=== PATIENT | female | born 1950 | race Caucasian/White ===

== ENCOUNTER → 2016-07-30 | Outpatient (CLI) | payer BC ==
[~2016-07-30] MED LIST: CHOL1000 PO; MULT-506 PO; OMEG10007 PO; OMEP40CA41 PO
--- NOTE | 2016-07-30 15:44 | DIAGNOSTIC IMAGING REPORT ---
CT OF THE RIGHT KNEE WITHOUT CONTRAST CT DOSE: 778.55 mGy.cm CLINICAL HISTORY: Lateral tibial plateau fracture. TECHNIQUE: Axial images of the right knee were obtained without IV contrast. Sagittal and coronal reconstructions were viewed. COMPARISON STUDY: Right knee radiographs performed earlier today. FINDINGS: There is a mildly displaced, mildly depressed fracture of the posterior aspect of the lateral tibial plateau. Fracture is depressed by approximately 4 mm. The fracture extends to the lateral tibial spine. No additional acute fractures are identified on this examination. This corresponds to the fracture shown on prior knee radiographs. There is a small to moderate joint effusion with small popliteal cyst. Mild arthritis of the right knee is noted. The ligaments of the right knee are suboptimally assessed by CT. The posterior cruciate ligament is grossly intact. The anterior cruciate ligament is not well visualized. Only a small portion of the anterior cruciate ligament is identified. IMPRESSION: 1. Acute mildly displaced, mildly depressed fracture of the posterior aspect of the lateral tibial plateau. 2. Small to moderate right knee joint effusion with small popliteal cyst. 3. Possible ACL tear, suboptimally assessed by CT. Electronically signed by: Fernando Davenport M.D. 07/30/2016 3:43 PM
== END | disposition home or self-care (01) ==
LOC: C.CTS 15:01
PROVIDERS: ATTEND Family Medicine
DX: S82.121A Displaced fracture of lateral condyle of right tibia, initial encounter for closed fracture (principal); X58.XXXA Exposure to other specified factors, initial encounter

== ENCOUNTER → 2016-07-30 | Outpatient (CLI) | payer BC ==
--- NOTE | 2016-07-30 09:56 | DIAGNOSTIC IMAGING REPORT ---
RIGHT KNEE 4 OR MORE VIEWS CLINICAL HISTORY: M25.561 Knee pain, right acute R knee pain Med and Lat joint sp f Right pain COMPARISON: None. DISCUSSION: Potential subtle cortical break lateral tibial plateau. Mild degenerative change of all remaining joint compartments. No significant joint effusion. Bony alignment is anatomic. There is no evidence for soft tissue swelling. IMPRESSION: Possible nondisplaced cortical fracture lateral tibial plateau versus overlap artifact. CT study of the knee is suggested as follow-up. Electronically signed by: Albin Ratliff M.D. 07/30/2016 9:54 AM
== END | disposition home or self-care (01) ==
LOC: C.RAD1850 09:37
PROVIDERS: ATTEND Family Medicine
DX: M25.561 Pain in right knee (principal)

== ENCOUNTER → 2016-12-03 | Outpatient (CLI) | payer BC ==
--- NOTE | 2016-12-03 12:49 | MAMMOGRAPHY REPORT ---
BILATERAL DIGITAL SCREENING MAMMOGRAM WITH CAD: 12/03/2016 CLINICAL HISTORY: Routine screening. Patient has no complaints. TECHNIQUE: Bilateral CC and MLO views were obtained. Current study was also evaluated with a Comput er Aided Detection (CAD) system. COMPARISON: Comparison is made to exams dated: 11/06/2015 mammogram, 11/11/2014 ultrasound, 11/11/2014 mammogram, 10/31/2014 mammogram, 08/16/2013 mammogram, and 08/10/2012 mammogram - [facility]. BREAST COMPOSITION: There are scattered areas of fibroglandular density in both breasts. FINDINGS: There is a stable circumscribed 6 mm round mass in the lower inner quadrant of the right b reast. Scattered benign rim calcifications. No suspicious mass, architectural distortion or cluste r of suspicious microcalcifications is seen. IMPRESSION: ACR BI-RADS CATEGORY 1: NEGATIVE There is no mammographic evidence of malignancy. A 1 year screening mammogram is recommended. The p atient will receive written notification of the results. Approximately 10% of breast cancers are not detected with mammography. A negative mammographic repor t should not delay biopsy if a clinically suggestive mass is present. Soraya Frank M.D. ay/:12/03/2016 08:58:46 [employer] Automatic Sawyer: Kelli BILLINGSLEY(R)(M), [facility] letter sent: Normal 1/2 BI-RADS Code: ACR BI-RADS Category 1: Negative
== END | disposition home or self-care (01) ==
LOC: C.MAMM 08:19
PROVIDERS: ATTEND Internal Medicine
DX: Z12.31 Encounter for screening mammogram for malignant neoplasm of breast (principal)

== ENCOUNTER → 2016-12-30 | Outpatient (CLI) | payer BC ==
[2016-12-30 14:08] LABS: ALT/SGPT 46 U/L (12-78); AST/SGOT 48 U/L (15-37); BLOOD UREA NITROGEN 14 mg/dl (7-18); BUN/CREATININE RATIO 20.9 (10-20); CALCIUM 9.6 mg/dl (8.5-10.1); CARBON DIOXIDE 31 mmol/L (21-32); CHLORIDE 105 mmol/L (98-107); CREATININE 0.69 mg/dl (0.60-1.20); GLUCOSE 83 mg/dl (70-99); SODIUM 141 mmol/L (136-145)
[2016-12-30 14:11] LABS: CHOLESTEROL 223 mg/dl (0-200); CHOLESTEROL/HDL RATIO 4.6; HDL CHOLESTEROL 48 mg/dl; LDL CHOLESTEROL CALCULATED 148 mg/dl; TRIGLYCERIDES 135 mg/dl (0-150); VERY LOW DENSITY LIPOPROT CALC 27 mg/dl
--- NOTE | 2017-01-03 10:24 | CODING QUERY MEDICAL NECESSITY ---
SUPPORTING DIAGNOSIS NEEDED Dr. Castro, A supporting diagnosis is required for the test/procedure performed on this patient in order for us to be reimbursed by the patient's insurance. Please provide a supporting diagnosis for the following test/procedure listed below next to the test name along with your signature. *If there is no additional diagnosis for this patient that would support the following test/procedure please document that below next to the test/procedure. Test(s)/Procedure(s) that require a supporting diagnosis: * ([id number]) VITAMIN D ASSAY DIAGNOSIS: DATE OF SERVICE: 12/30/16 Provider Signature: Date: Thank you Charly Gallo [facility] Information Management Once completed, please kindly fax back to [phone] For questions please call [phone]
== END | disposition home or self-care (01) ==
LOC: C.LABBC 09:42
PROVIDERS: ATTEND Internal Medicine
DX: E78.5 Hyperlipidemia, unspecified (principal); R74.0 Nonspecific elevation of levels of transaminase and lactic acid dehydrogenase [LDH]; S82.209A Unspecified fracture of shaft of unspecified tibia, initial encounter for closed fracture; X58.XXXA Exposure to other specified factors, initial encounter; R74.8 Abnormal levels of other serum enzymes; E55.9 Vitamin D deficiency, unspecified

== ENCOUNTER → 2017-01-06 | Outpatient (CLI) | payer BC ==
[2017-01-06 11:41] LABS: ALKALINE PHOSPHATASE 73 U/L (45-117); ALT/SGPT 47 U/L (12-78); AST/SGOT 55 U/L (15-37)
== END | disposition home or self-care (01) ==
LOC: C.LABBC 08:21
PROVIDERS: ATTEND Internal Medicine
DX: R74.0 Nonspecific elevation of levels of transaminase and lactic acid dehydrogenase [LDH] (principal); R74.8 Abnormal levels of other serum enzymes

== ENCOUNTER → 2017-01-13 | Outpatient (CLI) | payer BC ==
--- NOTE | 2017-01-13 08:22 | DIAGNOSTIC IMAGING REPORT ---
ABDOMINAL ULTRASOUND, RIGHT UPPER QUADRANT HISTORY: Pain. Nausea. K82.4 Gallbladder polypmond but not january [id number]. COMPARISON: 01/01/2016 FINDINGS: Pancreas: The pancreas demonstrates a normal echotexture. Liver: Unremarkable. Gallbladder: Several small gallbladder polyps. No major change in the prior study. CBD: 5 mm Right kidney: No hydronephrosis. IMPRESSION: Several small gallbladder polyps. No change from the prior study. Electronically signed by: Albin Ratliff M.D. 01/13/2017 8:21 AM Dictated Date/Time: 01/13/2017 8:19 AM
== END | disposition home or self-care (01) ==
LOC: C.ULTRBC 07:56
PROVIDERS: ATTEND Internal Medicine
DX: K82.4 Cholesterolosis of gallbladder (principal)

== ENCOUNTER → 2017-03-10 | Day surgery (SDC) | payer BC ==
[2016-07-15 10:11] VITALS: BMI 21.0
[2017-02-25 15:15] VITALS: BMI 21.0
[~2017-03-10] VITALS: Ht 157.5 cm; Wt 52.3 kg
[~2017-03-10] MED LIST changes: +LIDOCAINE HCL 2% 2 ML VIAL (20MG/ML) ONE; +PROPOFOL IV EMULSION 10 MG/ML 20 ML VIAL IV ONE; +SODIUM CHLORIDE 0.9% 500ML 500 ML IV ONE
[2017-03-10 13:13] VITALS: Ht 157.5 cm; Wt 52.3 kg
--- NOTE | 2017-03-10 14:18 | Endo History and Physical ---
History & Physical Date of Service: Mar 10, 2017. Chief Complaint: SCREEENING FOR COLON CANCER Referring Physician: DR HAGAN History of Present Illness 66 yo CF who presents for screening colonoscopy. Past Surgical History Hx Cardiac Surgery: No Hx Internal Defibrillator: No Hx Pacemaker: No Hx Abdominal Surgery: Yes (APPY) Hx of Implantable Prosthesis: No Hx Post-Op Nausea and Vomiting: No Hx Cancer Surgery: No Hx Thoracic Surgery: No Hx Orthopedic: Yes (LT/RT KNEE MENISCUS REPAIR) Hx Urinary Tract Surgery: No Family History None Social History Smoking Status: Never Smoker Hx Substance Use: No Hx Alcohol Use: No Allergies Coded Allergies: Penicillins (Verified Allergy, Unknown, UNKNOWN - HAPPENED CHILD, ) Current Medications Reported Home Medications Medications Dose Route/Sig Max Daily Dose Days Date Category Vitamin D3 (Cholecalciferol) 1,000 Unit Tab 1 Tab PO QPM 02/25/17 Reported [place]-3 (Fish Oil) 1 Ea Cap 1 Cap PO QPM 07/15/16 Reported Prilosec (Omeprazole) 40 Mg Cap 40 Mg PO DAILY PRN 07/15/16 Reported Multivitamin (Multivitamins) Tab 1 Tab PO QPM 07/15/16 Reported Vital Signs Weight (Kilograms): 52.27 Height (Feet): 5 Height (Inches): 2 Date Time Temp Pulse Resp B/P (MAP) Pulse Ox O2 Delivery O2 Flow Rate FiO2 03/10/17 13:18 36.5 85 20 122/55 (77) 100 Room Air Physical Exam General Appearance: WD/WN, no apparent distress Respiratory/Chest: Auscultation: breath sounds normal Cardiovascular: Heart Auscultation: RRR Abdomen: Bowel Sounds: normal Inspection & Palpation: soft, non-distended, no tenderness, guarding & rebound Assessment and Plan Assessment: 66 yo CF who presents for screening colonoscopy. Plan: Proceed with colonoscopy.
--- NOTE | 2017-03-10 15:08 | Discharge Instructions ---
Endoscopy Patient Instructions Date / Procedure(s) Performed Mar 10, 2017. Colonoscopy Allergy Information Coded Allergies: Penicillins (Verified Allergy, Unknown, UNKNOWN - HAPPENED CHILD, ) Discharge Date / Findings Mar 10, 2017. Colon polyps Diverticulosis Internal hemorrhoids Medication Instructions Stopped Medication(s): OMEGA 3 LAST DOSE 03/03/17 MULTIVITAMIN AST DOSE 03/04/17 OK to resume all medications today as prescribed Reported Home Medications Medications Dose Route/Sig Max Daily Dose Days Date Category Vitamin D3 (Cholecalciferol) 1,000 Unit Tab 1 Tab PO QPM 02/25/17 Reported [place]-3 (Fish Oil) 1 Ea Cap 1 Cap PO QPM 07/15/16 Reported Prilosec (Omeprazole) 40 Mg Cap 40 Mg PO DAILY PRN 07/15/16 Reported Multivitamin (Multivitamins) Tab 1 Tab PO QPM 07/15/16 Reported Provider Instructions Activity Restrictions - No exercising or heavy lifting for 24 hours. - Do not drink alcohol the day of the procedure. - Do not drive a car or operate machinery until the day after the procedure. - Do not make any important decisions or sign important papers in 24 hours after the procedure. Following Day: - Return to full activity which may include returning to work/school. Diet Start your diet with liquids and light foods (jello, soup, juice, toast). Then eat your usual diet if not nauseated. Treatment For Common After Affects For mild abdominal pain, bloating, or excessive gas: - Rest - Eat lightly - Lie on right side Follow-Up Information Follow-up with DR HAGAN as scheduled Anesthesia Information What You Should Know You have had a procedure that required some medicine to reduce anxiety and discomfort. This treatment is called moderate sedation. After receiving the treatment, you may be sleepy, but you will be able to breathe on your own. The effects of the treatment may last for several hours. Follow these instructions along with Activity/Diet recommendations noted above: * Do NOT do anything where dizziness or clumsiness would be dangerous. * Rest quietly at home today, then you can be up and about tomorrow. * Have a responsible person stay with you the rest of today. * You may have had an I.V. today. If so, you may take the dressing off later today. Recommendations Call your doctor if: * Trouble breathing * Continuous vomiting for more than 24 hours * Temperature above 101 degrees * Severe abdominal pain or bloating * Pain not relieved by pain medicine ordered * There is increased drainage or redness from any incision * A large amount of rectal bleeding greater than 2-3 tablespoons. (If you had a polyp/s removed or have hemorrhoids, a small amount of blood - from the rectum is to be expected.) * You have any unanswered questions or concerns. IN THE EVENT OF A SERIOUS EMERGENCY, GO TO THE NEAREST EMERGENCY ROOM Your discharge instructions were prepared by provider Ricardo Laws. Patient Instructions Signature Page Jesi Leong Patient (or Guardian) Signature/Date: I have read and understand the instructions given to me by my caregivers. Caregiver/RN/Doctor Signature/Date: The above-named patient and/or guardian has received patient instructions on this date. + Original Patient Signature Page (only) stays with chart. Please make copy for patient.
[2017-03-10 15:15] VITALS: PULSE 54
--- NOTE | 2017-03-10 15:17 | GI REPORT ---
Procedure Date: 03/10/2017 2:34 PM Procedure: Colonoscopy Indications: Screening for colorectal malignant neoplasm Medicines: Monitored Anesthesia Care Complications: No immediate complications. Estimated Blood Loss: Estimated blood loss: none. Procedure: Pre-Anesthesia Assessment: - Prior to the procedure, a History and Physical was performed, and patient medications and allergies were reviewed. The patient's tolerance of previous anesthesia was also reviewed. The risks and benefits of the procedure and the sedation options and risks were discussed with the patient. All questions were answered, and informed consent was obtained. Prior Anticoagulants: The patient has taken no previous anticoagulant or antiplatelet agents. ASA Grade Assessment: II - A patient with mild systemic disease. After reviewing the risks and benefits, the patient was deemed in satisfactory condition to undergo the procedure. After I obtained informed consent, the scope was passed under direct vision. Throughout the procedure, the patient's blood pressure, pulse, and oxygen saturations were monitored continuously. The Scope was introduced through the anus and advanced to the terminal ileum. The colonoscopy was performed without difficulty. The patient tolerated the procedure well. The quality of the bowel preparation was good. The terminal ileum, ileocecal valve, appendiceal orifice, and rectum were photographed. Findings: Three sessile polyps were found in the rectum, in the sigmoid colon and in the cecum. The polyps were 5 to 6 mm in size. These polyps were removed with a hot snare. Resection and retrieval were complete. Multiple small-mouthed diverticula were found in the sigmoid colon. Non-bleeding internal hemorrhoids were found during retroflexion. The hemorrhoids were small. Impression: - Three 5 to 6 mm polyps in the rectum, in the sigmoid colon and in the cecum, removed with a hot snare. Resected and retrieved. - Diverticulosis in the sigmoid colon. - Non-bleeding internal hemorrhoids. Recommendation: - Resume previous diet. - Continue present medications. - Repeat colonoscopy for surveillance based on pathology results. - Return to primary care physician as previously scheduled. Ricardo Laws DO 03/10/2017 3:17:42 PM This report has been signed electronically. Note Initiated On: 03/10/2017 2:34 PM I attest to the content of the Intraoperative Record and orders documented therein, exceptions below
--- NOTE | 2017-03-10 15:25 | Anesthesiology Progress Note ---
Anesthesia Post Op Note Date & Time Mar 10, 2017 at 15:25 Vital Signs Pain Intensity: 0 Vital Signs Past 12 Hours Date Time Temp Pulse Resp B/P (MAP) Pulse Ox O2 Delivery O2 Flow Rate FiO2 03/10/17 15:15 54 18 127/46 (73) 100 Room Air 03/10/17 15:00 55 12 124/85 (98) 100 Room Air 03/10/17 13:18 36.5 85 20 122/55 (77) 100 Room Air Notes Mental Status: alert / awake / arousable, participated in evaluation Pt Amnestic to Procedure: Yes Nausea / Vomiting: adequately controlled Pain: adequately controlled Airway Patency, RR, SpO2: stable & adequate BP & HR: stable & adequate Hydration State: stable & adequate Anesthetic Complications: no major complications apparent
[2017-03-10 15:30] VITALS: BP 118/59; O2SAT 97
== END | disposition home or self-care (01) ==
LOC: C.GI 12:54
PROVIDERS: ATTEND Internal Medicine
DX: Z12.11 Encounter for screening for malignant neoplasm of colon (principal); D12.6 Benign neoplasm of colon, unspecified; D12.8 Benign neoplasm of rectum; K64.8 Other hemorrhoids; K57.90 Diverticulosis of intestine, part unspecified, without perforation or abscess without bleeding

== ENCOUNTER → 2017-04-24 | Outpatient (CLI) | payer BC ==
[~2017-04-24] MED LIST changes: -LIDOCAINE HCL 2% 2 ML VIAL (20MG/ML) ONE; -PROPOFOL IV EMULSION 10 MG/ML 20 ML VIAL IV ONE; -SODIUM CHLORIDE 0.9% 500ML 500 ML IV ONE
[2017-05-06 14:37] LABS: O&P SOURCE OTHER-STOOL
== END | disposition home or self-care (01) ==
LOC: C.LABSPEC 09:45
PROVIDERS: ATTEND Physician Assistant
DX: R19.4 Change in bowel habit (principal); R74.0 Nonspecific elevation of levels of transaminase and lactic acid dehydrogenase [LDH]

== ENCOUNTER → 2017-08-11 | Outpatient (CLI) | payer BC | END | disposition home or self-care (01) | LOC: C.PAPS 10:58 | PROVIDERS: ATTEND Obstetrics & Gynecology | DX: Z01.419 Encounter for gynecological examination (general) (routine) without abnormal findings (principal); Z78.0 Asymptomatic menopausal state ==

== ENCOUNTER → 2017-12-08 | Outpatient (CLI) | payer BC ==
[2017-12-08 11:07] LABS: ALT/SGPT 45 U/L (12-78); AST/SGOT 46 U/L (15-37); BLOOD UREA NITROGEN 14 mg/dl (7-18); CALCIUM 8.8 mg/dl (8.5-10.1); CARBON DIOXIDE 28 mmol/L (21-32); CHOLESTEROL 218 mg/dl (0-200); CREATININE 0.69 mg/dl (0.60-1.20); GLUCOSE 90 mg/dl (70-99); SODIUM 140 mmol/L (136-145)
[2017-12-08 11:10] LABS: ALKALINE PHOSPHATASE 75 U/L (45-117); LDL CHOLESTEROL CALCULATED 149 mg/dl; TOTAL PROTEIN 7.8 gm/dl (6.4-8.2)
== END | disposition home or self-care (01) ==
LOC: C.LABBC 08:58
PROVIDERS: ATTEND Internal Medicine
DX: E78.5 Hyperlipidemia, unspecified (principal); R74.0 Nonspecific elevation of levels of transaminase and lactic acid dehydrogenase [LDH]; E55.9 Vitamin D deficiency, unspecified; R74.8 Abnormal levels of other serum enzymes

== ENCOUNTER → 2017-12-08 | Outpatient (CLI) | payer BC ==
--- NOTE | 2017-12-08 15:25 | MAMMOGRAPHY REPORT ---
BILATERAL DIGITAL SCREENING MAMMOGRAM TOMOSYNTHESIS WITH CAD: 12/08/2017 CLINICAL HISTORY: Routine screening. Patient has no complaints. TECHNIQUE: Breast tomosynthesis in addition to standard 2D mammography was performed. Current study was also evaluated with a Computer Aided Detection (CAD) system. COMPARISON: Comparison is made to exams dated: 12/03/2016 mammogram, 11/06/2015 mammogram, 11/11/2014 ul trasound, 11/11/2014 mammogram, 08/16/2013 mammogram, and 08/10/2012 mammogram - [facility]. BREAST COMPOSITION: There are scattered areas of fibroglandular density in both breasts. FINDINGS: There is a stable 6 mm round circumscribed mass in the lower inner right breast, that appea rs stable in size and mammographic appearance dating back to at least 2008, therefore likely benign. There are scattered benign rim calcifications bilaterally. No new suspicious mass, architectural dis tortion or cluster of microcalcifications is seen. IMPRESSION: ACR BI-RADS CATEGORY 1: NEGATIVE There is no mammographic evidence of malignancy. A 1 year screening mammogram is recommended. The pa tient will receive written notification of the results. Approximately 10% of breast cancers are not detected with mammography. A negative mammographic report should not delay biopsy if a clinically suggestive mass is present. Soraya Frank M.D. ay/:12/08/2017 11:59:49 [employer] Emission Automobile Designer: Kelli FIERRO)(Boris), [facility] letter sent: Normal 1/2 BI-RADS Code: ACR BI-RADS Category 1: Negative
== END | disposition home or self-care (01) ==
LOC: C.MAMM 08:16
PROVIDERS: ATTEND Internal Medicine
DX: Z12.31 Encounter for screening mammogram for malignant neoplasm of breast (principal)

== ENCOUNTER 2024-08-19 12:46 | Inpatient (IN) ==
[2024-08-19 13:25] LABS: Hematocrit (blood only) 36.5 % (37.0-47.0); Hemoglobin 12.3 g/dl (12.0-16.0); Mean Corpuscular Hemoglobin 27.9 pg (25.0-34.0); Mean Corpuscular Hgb Conc 33.7 g/dL (32.0-36.0); Mean Corpuscular Volume 82.8 fL (80.0-100.0); Platelet Count 332 K/uL (130-400); RDW Standard Deviation 42.1 fL (36.4-46.3); Red Blood Count 4.41 M/uL (4.20-5.40); White Blood Count 18.74 K/ul (4.8-10.8)
[2024-08-19 13:46] LABS: Albumin Globulin Ratio 1.3 (0.9-2); Albumin Level 4.3 gm/dl (3.4-5.0); BUN Creatinine Ratio 17.6 (10-20); Bilirubin,Total 0.4 mg/dl (0.2-1.0); Calcium 9.3 mg/dl (8.6-10.3); Creatinine Clr Calc Pharmacy 70.5 ml/min; Globulin 3.4 gm/dl (2.5-4.0); Potassium 3.7 mmol/L (3.5-5.1); Total Protein 7.7 gm/dl (6.0-8.3)
[2024-08-19 13:47] LABS: Partial Thromboplastin Ratio 1.1; Partial Thromboplastin Time 29 Seconds (21-31); Prothrombin Time 10.5 Seconds (9.0-12.0)
[2024-08-19 13:50] LABS: Troponin I High Sensitivity 12.5 pg/ml (0-14)
--- NOTE | 2024-08-19 13:54 | Electrocardiogram Report ---
Test Reason : Blood Pressure : */* mmHG Vent. Rate : 84 BPM Atrial Rate : 84 BPM P-R Int : 162 ms QRS Dur : 116 ms QT Int : 372 ms P-R-T Axes : 83 -22 92 degrees QTcB Int : 439 ms Sinus rhythm with occasional Premature ventricular complexes Minimal voltage criteria for LVH, may be normal variant Nonspecific ST and T wave abnormality Abnormal ECG Confirmed by Brennon Stephens ([id number]) on 08/19/2024 1:54:05 PM Referred By: Confirmed By: Brennon Stephens
[2024-08-19 13:55] LABS: Influenza A virus by PCR Negative (Neg); Influenza B virus by PCR Negative (Neg); RSV by PCR Negative (Neg); SARS CoV2 RNA(COVID-19) Ceph NEGATIVE (Negative)
[2024-08-19 13:59] LABS: Basophils # (auto) 0.07 K/uL (0.00-0.20); Basophils % (auto) 0.4 %; Eosinophils # (auto) 0.08 K/uL (0.00-0.50); Eosinophils % (auto) 0.4 %; Immature Granulocytes % (auto) 0.5 %; Lymphocytes # (auto) 2.97 K/uL (1.20-3.40); Lymphocytes % (auto) 15.8 %; Monocytes # (auto) 0.68 K/uL (0.11-0.59); Monocytes % (auto) 3.6 %; Neutrophils # (auto) 14.84 K/uL (1.40-6.50); Neutrophils % (auto) 79.3 %
--- NOTE | 2024-08-19 14:12 | XRay Report ---
XR chest 1V not portable CLINICAL HISTORY: Chest pain, nonspecific COMPARISON STUDY: 05/10/2024 FINDINGS: Heart size and pulmonary vasculature are normal. Stable hyperexpanded lungs. No consolidati on, pleural effusion, or pneumothorax. Stable mild scarring in the apices. IMPRESSION: No acute findings. ACT 112: Negative or not required by law. Electronically signed by: Jose Daniel Fraire M.D. 08/19/2024 2:11 PM
[2024-08-19] MEDS: OPTIRAY 320 125ml IV ONE (14:48)
--- NOTE | 2024-08-19 15:00 | Emergency Department Note ---
Impression & Plan MCKINNEY (dyspnea on exertion), Leukocytosis, Pneumonia, Failure of outpatient treatment ED Provider Note NAME: SHERIN HOLLAND AGE: 73 SEX: F : 1950 ARRIVES VIA: Walk-In INFORMANT: [Patient] ED PROVIDER(S): [Alonzo Medina MD] CHIEF COMPLAINT: Shortness of breath HISTORY OF PRESENT ILLNESS: The patient is a 73-year-old female who presents to the ER with shortness of breath that has been present for months but worse in the last week. The patient was diagnosed with bronchiectasis and possibly pneumonia and she was placed on Levaquin. The patient finished this medication. The patient does not think that the antibiotics really helped her symptoms. In fact, she now feels even more short of breath. She felt short of breath trying to take out the garbage. The patient states that there has not been any fever, she has had a slight cough but nothing excessive. Occasionally, she hears herself wheeze. The patient does not have chest pain. She does feel her dyspnea is quite a bit worse when she tries to exert herself. She does see pulmonology and, was referred today to the ER as things seemed to be worsening. No history of previous PE or DVT. Of note, the patient has an outpatient bronchial washing from earlier this month showing Pseudomonas and Pasteurella. PMHx/PSHx/Social Hx: See Below PHYSICAL EXAM: GENERAL: Patient is in no acute distress. HEENT: No acute trauma, normocephalic atraumatic, mucous membranes moist, no nasal congestion. NECK: No stridor, no adenopathy, no meningismus, trachea is midline. LUNGS: Clear to auscultation bilaterally, no wheeze, no rhonchi, breath sounds equal. Breath sounds diminished bilaterally. HEART: Without murmurs gallops or rubs, regular rate and rhythm. ABDOMEN: Soft, nontender, no peritonitis. EXTREMITIES: No cyanosis, full range of motion of all the joints without pain or difficulty. NEUROLOGIC: Oriented x 3, no acute motor or sensory deficits, no focal weakness. SKIN: No jaundice, no diaphoresis. DIFFERENTIAL DIAGNOSIS: Bronchitis or pneumonia, bronchiectasis, failed outpatient management, PE, anemia, cardiac ischemia, among others. EMERGENCY DEPARTMENT PROCEDURES: MEDICAL DECISION MAKING: There is a moderate leukocytosis, this would be consistent with infection. There was a normal hemoglobin and platelet count. No coagulopathy. No renal failure or significant electrolyte abnormality. Lactic acid level is not elevated making sepsis less likely. No concerning liver enzyme elevation. ECG showed a sinus rhythm, no obvious acute ischemia. Cardiac enzyme testing x 1 was not consistent with acute cardiac injury. Nasal swab did not show influenza, RSV or COVID-19. Chest x-ray did not show pneumonia or CHF. Chest CT did not show PE, pneumonia was seen--similar to the CT from earlier this month. Patient presents with worsening dyspnea despite outpatient Levaquin. Her CT imaging demonstrates pneumonia, the pneumonia has not cleared with the Levaquin. Given the failed outpatient management, given the leukocytosis and her dyspnea on exertion, hospitalization is indicated. I did speak with pulmonology, they recommended IV antibiotic therapy, admission. I spoke with the patient and case management, the on-call hospitalist was consulted. Patient was given IV cefepime to start her antibiotic therapy. Prior/Outside records/notes reviewed: None ECG per my interpretation: Indication was shortness of breath. The ECG shows a sinus rhythm with some PVCs. The rate is 84. LVH is present. There is no obvious acute ST elevation, there is some nonspecific ST change. QTc was 439. Continuous Cardiac Monitoring per my interpretation: An order was placed for continuous cardiac monitoring. The monitor shows a rate of 99 with normal sinus rhythm. Imaging/x-ray results per my interpretation: Chest x-ray does not show CHF, pneumonia or pneumothorax. Chronic Medical/Social conditions affecting care: Advanced age. Care/Management discussed with: Pulmonary medicine-Dr. Randall. Case management and the on-call hospitalist. Level of care consideration(s): After review of the information above and other included data: --I feel the patient can be managed safely as an outpatient DISPOSITION: Discharged Past Med/Surg History Problem List Failure of outpatient treatment (Acute) Pneumonia (Acute) Leukocytosis (Acute) MCKINNEY (dyspnea on exertion) (Acute) Bronchiectasis Hyponatremia Leukocytosis Pseudomonas pneumonia Abnormal CT scan of lung Barrera esophagus Current use of proton pump inhibitor Screening for colon cancer Anemia, mild Left shoulder pain PMR (polymyalgia rheumatica) Hip pain Neck pain Mallet finger of right hand Gallbladder polyp (Acute) Elevated creatine kinase level Vitamin D deficiency (Acute) Raynauds phenomenon (Acute) Hyperlipidemia (Acute) Esophageal reflux (Acute) Diverticulosis (Acute) Medical History Barretts esophagus "mild" Internal hemorrhoids Surgical History History of esophagogastroduodenoscopy (EGD) Cranberry teeth removed History of cataract surgery left Hx of detached retina repair rt/left Hx of ovarian cystectomy Hx of arthroscopy of knee left/right Hx of hernia repair 1996 Hx of colonoscopy Hx of appendectomy Family History Brother Alcoholism Inflammatory bowel diseases (IBD) Sister Asthma Grandmother (Maternal) Breast cancer Father Coronary heart disease Mother Heart disease Myocardial infarction @ 46 Other No family history of adverse response to anesthesia Denies family history of Ovarian cancer Prostate cancer Crohn's disease Colorectal cancer Social History Smoking Status: Former smoker Second Hand Exposure: Yes (in the past); Do You Dip or Chew Tobacco: No; Hx Alcohol Use: No Hx Substance Use: No Preferred Language: Congolese Visual Impairment: No Limitations Hearing Ability: Normal Chemical Dependency Counselor Required: No Beliefs That Will Affect Care: None marital status: Current Living Situation: Alone Current Living Situation Comment: papo current occupational status: employed 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 Feels Safe at Home: Yes Childhood Exposure to Second-Hand Smoke: Yes Dental Care, Regularly: Yes Physical Activity Frequency: Daily Seatbelt Use: always Sunscreen Use: Yes Assistive Devices: Glasses Allergies Allergies Allergy/AdvReac Type Severity Reaction Status Date / Time Penicillins Allergy Unknown unsure>chil Verified 07/23/24 12:18 dhood Home Meds Home Medications Medication Instructions Recorded Confirmed multivitamin (Daily Multi-Vitamin 1 tab PO DAILY 03/15/19 08/19/24 tablet) cholecalciferol (vitamin D3) 50 2,000 units PO DAILY 04/16/19 08/19/24 mcg (2,000 unit) capsule Previous Rx's Medication Instructions Recorded ezetimibe 10 mg tablet (Zetia) 10 mg PO DAILY #30 tabs 04/08/24 albuterol sulfate 90 mcg/actuation 2 puff inhalation QID PRN 05/24/24 aerosol inhaler shortness of breath or wheezing #8.5 grams benzonatate 200 mg capsule 200 mg PO TID PRN cough #30 caps 05/24/24 omeprazole 40 mg capsule,delayed 40 mg PO QAM #90 caps 06/07/24 release guaifenesin 1,200 mg tablet, 1,200 mg PO BID #60 tabs 07/27/24 extended release 12 hr (Mucinex) sodium chloride 3 % for 4 ml inhalation Q8H PRN secretions 07/27/24 nebulization #120 mL umeclidinium 62.5 mcg-vilanterol 1 inh inhalation DAILY #60 ea 08/16/24 25 mcg/actuation powdr for inhalation (Anoro Ellipta) Results & Data (ED) Vital Signs Vital Signs - 24 hr 08/19/24 12:50 08/19/24 15:49 08/19/24 16:00 Temperature 36.5 C Temperature Source Temporal Artery Scan Pulse Rate 99 H Pulse Rate from SpO2 Sensor Respiratory Rate 18 Respiratory Effort / Characteristics Non-Labored Spontaneous Respiratory Depth Normal Blood Pressure 160/86 H Blood Pressure Mean 110 Blood Pressure Position Sitting Pulse Oximetry 93 93 Oxygen Delivery Method Room Air Room Air Room Air Oxygen Flow Rate 0 Sepsis Recent Fever Within 48 Hours No Sepsis New/Unexplained Change in Mental Status No Sepsis Action Taken by Nursing No Action Required 08/19/24 16:00 08/19/24 17:00 08/19/24 17:30 Temperature Temperature Source Pulse Rate 73 70 Pulse Rate from SpO2 Sensor 67 Respiratory Rate 20 17 Respiratory Effort / Characteristics Respiratory Depth Blood Pressure 127/60 136/75 Blood Pressure Mean 95 95 Blood Pressure Position Pulse Oximetry 99 93 96 Oxygen Delivery Method Room Air Room Air Room Air Oxygen Flow Rate Sepsis Recent Fever Within 48 Hours Sepsis New/Unexplained Change in Mental Status Sepsis Action Taken by Nursing 08/19/24 18:00 08/19/24 18:30 08/19/24 19:00 Temperature Temperature Source Pulse Rate 57 L 78 70 Pulse Rate from SpO2 Sensor Respiratory Rate 20 18 22 Respiratory Effort / Characteristics Respiratory Depth Blood Pressure 106/34 L 144/64 H 165/59 H Blood Pressure Mean 70 73 98 Blood Pressure Position Pulse Oximetry 93 95 98 Oxygen Delivery Method Room Air Room Air Room Air Oxygen Flow Rate Sepsis Recent Fever Within 48 Hours Sepsis New/Unexplained Change in Mental Status Sepsis Action Taken by Nursing 08/19/24 19:30 08/19/24 20:00 08/19/24 20:07 Temperature Temperature Source Pulse Rate 65 68 Pulse Rate from SpO2 Sensor Respiratory Rate 16 24 Respiratory Effort / Characteristics Respiratory Depth Blood Pressure 142/55 H 150/63 H Blood Pressure Mean 68 71 Blood Pressure Position Pulse Oximetry 99 96 Oxygen Delivery Method Room Air Room Air Room Air Oxygen Flow Rate Sepsis Recent Fever Within 48 Hours Sepsis New/Unexplained Change in Mental Status Sepsis Action Taken by Alf Medications Current Medication List: was personally reviewed by me Laboratory Data Attestation: I reviewed the patient's lab results. 08/19/24 13:06 08/19/24 13:06 Lab Results 08/19/24 08/19/24 08/19/24 Range/Units 13:01 13:06 16:51 WBC 18.74 H (4.8-10.8) K/ul RBC 4.41 (4.20-5.40) M/uL Hgb 12.3 (12.0-16.0) g/dl Hct 36.5 L (37.0-47.0) % MCV 82.8 (80.0-100.0) fL MCH 27.9 (25.0-34.0) pg MCHC 33.7 (32.0-36.0) g/dL RDW Std Deviation 42.1 (36.4-46.3) fL RDW Coeff of Paco 14.0 (11.5-14.5) % Plt Count 332 (130-400) K/uL MPV 10.0 (9.4-12.4) fL Immature Gran % (Auto) 0.5 % Neut % (Auto) 79.3 % Lymph % (Auto) 15.8 % [place] % (Auto) 3.6 % Eos % (Auto) 0.4 % Baso % (Auto) 0.4 % Neut # (Auto) 14.84 H (1.40-6.50) K/uL Lymph # (Auto) 2.97 (1.20-3.40) K/uL [place] # (Auto) 0.68 H (0.11-0.59) K/uL Eos # (Auto) 0.08 (0.00-0.50) K/uL Baso # (Auto) 0.07 (0.00-0.20) K/uL Immature Gran # (Auto) 0.10 (0.01-0.20) K/uL PT 10.5 (9.0-12.0) Seconds INR 1.0 (0.9-1.1) APTT 29 (21-31) Seconds PTT Ratio 1.1 Sodium 133 L (136-145) mmol/L Potassium 3.7 (3.5-5.1) mmol/L Chloride 101 (98-107) mmol/L Carbon Dioxide 21 (21-32) mmol/L Anion Gap 11 (3-11) BUN 9 (6-23) mg/dl Creatinine 0.51 L (0.6-1.2) mg/dl Est Cr Clr Drug Dosing 70.5 ml/min eGFR 99.12 BUN/Creatinine Ratio 17.6 (10-20) Glucose 106 H (70-99(Fasting)) mg/dl Lactate 0.7 (0.4-2.0) mmol/L Calcium 9.3 (8.6-10.3) mg/dl Total Bilirubin 0.4 (0.2-1.0) mg/dl AST 23 (13-39) U/L ALT 14 (7-52) U/L Alkaline Phosphatase 97 (34-104) U/L Troponin I High Sens 12.5 (0-14) pg/ml C-Reactive Protein 3.21 H (0-0.5) mg/dl Total Protein 7.7 (6.0-8.3) gm/dl Albumin 4.3 (3.4-5.0) gm/dl Globulin 3.4 (2.5-4.0) gm/dl Albumin/Globulin Ratio 1.3 (0.9-2) Procalcitonin < 0.02 (0-0.5) ng/ml SARS-CoV-2 (PCR) NEGATIVE (Negative) Influenza Type A (PCR) Negative (Neg) Influenza Type B (PCR) Negative (Neg) RSV (RT-PCR) Negative (Neg) Administered Medications Discontinued Medications Acetaminophen (Acetaminophen 325 Mg Tab) 650 mg PO NOW STA Stop: 08/19/24 18:03 Last Admin: 08/19/24 18:25 Dose: 650 mg Documented By: FIORELLA Cefepime HCl (Maxipime 2000mg) 2,000 mg in 20 mls @ 5 mls/min IV NOW STA; Protocol Stop: 08/19/24 15:45 Last Admin: 08/19/24 17:30 Dose: 5 mls/min Documented By: LUI Ioversol (Optiray 320 125ml) 120 ml IV ONCE ONE Stop: 08/19/24 14:49 Last Admin: 08/19/24 14:48 Dose: 120 ml Documented By: YADIEL Imaging Data Radiologist's Impression: Chest X-Ray 08/19/24 12:55 XR chest 1V not portable CLINICAL HISTORY: Chest pain, nonspecific COMPARISON STUDY: 05/10/2024 FINDINGS: Heart size and pulmonary vasculature are normal. Stable hyperexpanded lungs. No consolidation, pleural effusion, or pneumothorax. Stable mild scarring in the apices. IMPRESSION: No acute findings. ACT 112: Negative or not required by law. Electronically signed by: Jose Daniel Fraire M.D. 08/19/2024 2:11 PM Chest CTA 08/19/24 14:29 CT angio chest PE protocol CT DOSE: 260.81 mGy.cm HISTORY: 73 years-old Female with PE. Acute shortness of breath TECHNIQUE: Multiple CTA images of the chest were obtained after the intravenous administration of 120 ml Optiray. Coronal and sagittal MIPS were obtained from the axial data set and were submitted for review. All measurements were obtained according to NASCET criteria. A dose lowering technique was utilized adhering to the principles of ALARA. COMPARISON: Chest CT 07/07/2024 FINDINGS: CTA: Mild cardiomegaly. Moderate coronary artery calcifications. Fusiform dilation of the aortic isthmus and proximal descending thoracic aorta measures up to 3.6 cm transversely, unchanged. No pulmonary emboli identified. CT CHEST: No thyroid nodule or pathologically enlarged lymph nodes identified within the chest. There is no pneumothorax, pleural effusion or overt pulmonary edema. Biapical pleural parenchymal scarring with areas of traction bronchiectasis. Prominent bibasilar mucous plugging. Mild consolidation with bronchiectasis of the inferior segment lingula. Patchy groundglass opacities throughout the right lung with bronchovascular distribution of consolidation/ground glass densities in the basal right lower lobe. No suspicious pulmonary nodules or masses identified. No acute upper abdominal abnormality. Cyst of the superior pole left kidney. Unremarkable soft tissues. Mild mid thoracic levoscoliosis. No acute fracture. IMPRESSION: 1. No pulmonary emboli identified. 2. Prominent mucus plugging of the lung bases with patchy right lung opacities compatible with an infectious or inflammatory pneumonitis. 3. Biapical pleural-parenchymal scarring with mild traction bronchiectasis. 4. No pleural effusion or lymphadenopathy. ACT 112: Negative or not required by law. The above report was generated using voice recognition software. It may contain grammatical, syntax or spelling errors. Electronically signed by: Rishi Souza M.D. 08/19/2024 3:02 PM Discharge Plan Visit Data Chief Complaint: Shortness of Breath/Dyspnea Stated Complaint: SOB, POSSIBLE PNEUMONIA OR RSV, REF BY DOC ED Provider: Alonzo Medina Discharge Problem: MCKINNEY (dyspnea on exertion), Leukocytosis, Pneumonia, Failure of outpatient treatment Patient Disposition: Admitted As Inpatient Condition: Fair Discharge Instructions Interventions: ED Discharge Assessment Last Done: 08/19/24 20:07 Forms Stand Alone Forms: [facility] Prescriptions Prescriptions: No Action omeprazole 40 mg capsule,delayed release(DR/EC) 40 mg PO QAM Qty: 90 3RF Anoro Ellipta 62.5-25 mcg/actuation blister with device 1 inh inhalation DAILY Qty: 60 3RF multivitamin [Daily Multi-Vitamin] tablet 1 tab PO DAILY cholecalciferol (vitamin D3) 2,000 unit capsule 2,000 units PO DAILY benzonatate 200 mg capsule 200 mg PO TID PRN (Reason: cough) Qty: 30 0RF albuterol sulfate 90 mcg/actuation HFA aerosol inhaler 2 puff inhalation QID PRN (Reason: shortness of breath or wheezing) Qty: 8.5 0RF sodium chloride 3 % solution for nebulization 4 ml inhalation Q8H PRN (Reason: secretions) Qty: 120 0RF guaifenesin [Mucinex] 1,200 mg tablet extended release 12hr 1,200 mg PO BID Qty: 60 0RF ezetimibe [Zetia] 10 mg tablet 10 mg PO DAILY Qty: 30 6RF Referrals Referrals: Storm Castro MD [Primary Care Provider] - Discharge Problem: Leukocytosis Qualifiers: Leukocytosis type: unspecified Qualified Code(s): D72.829 - Elevated white blood cell count, unspecified Pneumonia Qualifiers: Pneumonia type: due to unspecified organism Laterality: right Lung location: u nspecified part of lung Qualified Code(s): J18.9 - Pneumonia, unspecified organism
--- NOTE | 2024-08-19 15:04 | CT Scan Report ---
CT angio chest PE protocol CT DOSE: 260.81 mGy.cm HISTORY: 73 years-old Female with PE. Acute shortness of breath TECHNIQUE: Multiple CTA images of the chest were obtained after the intravenous administration of 120 ml Optiray. Coronal and sagittal MIPS were obtained from the axial data set and were submitted for review. All measurements were obtained according to NASCET criteria. A dose lowering technique was u tilized adhering to the principles of ALARA. COMPARISON: Chest CT 07/07/2024 FINDINGS: CTA: Mild cardiomegaly. Moderate coronary artery calcifications. Fusiform dilation of the aortic isthmus a nd proximal descending thoracic aorta measures up to 3.6 cm transversely, unchanged. No pulmonary emb michael identified. CT CHEST: No thyroid nodule or pathologically enlarged lymph nodes identified within the chest. There is no pne umothorax, pleural effusion or overt pulmonary edema. Biapical pleural parenchymal scarring with area s of traction bronchiectasis. Prominent bibasilar mucous plugging. Mild consolidation with bronchiect asis of the inferior segment lingula. Patchy groundglass opacities throughout the right lung with bro nchovascular distribution of consolidation/ground glass densities in the basal right lower lobe. No s uspicious pulmonary nodules or masses identified. No acute upper abdominal abnormality. Cyst of the superior pole left kidney. Unremarkable soft tissue s. Mild mid thoracic levoscoliosis. No acute fracture. IMPRESSION: 1. No pulmonary emboli identified. 2. Prominent mucus plugging of the lung bases with patchy right lung opacities compatible with an inf ectious or inflammatory pneumonitis. 3. Biapical pleural-parenchymal scarring with mild traction bronchiectasis. 4. No pleural effusion or lymphadenopathy. ACT 112: Negative or not required by law. The above report was generated using voice recognition software. It may contain grammatical, syntax o r spelling errors. Electronically signed by: Rishi Souza M.D. 08/19/2024 3:02 PM
[2024-08-19 17:20] LABS: C Reactive Protein 3.21 mg/dl (0-0.5)
[2024-08-19] MEDS: CEFEPIME 2000MG 2,000 MG/20 ML SYR IV STA (17:30)
--- NOTE | 2024-08-19 18:18 | History & Physical Report ---
Date of Service August 19, 2024 Assessment & Plan (1) Pseudomonas pneumonia: (2) Bronchiectasis: (3) Leukocytosis: (4) Hyponatremia: Plan Patient is a 73-year-old female with past medical history of hyperlipidemia, Raynaud's, Barrera's esophagus gas, vitamin D deficiency. She has been following with pulmonology since due to ongoing dyspnea. She was diagnosed with walking pneumonia, then developed COVID, now has a diagnosis of bronchiectasis. Denies diagnoses of asthma or COPD. She had a bronchoscopy with Dr. Randall 08/05/2024 in which he took samples of secretions that now have grown pansensitive Pseudomonas. She completed an outpatient course of Levaquin with minimal improvement. She has had worsening dyspnea on exertion that is debilitating to her daily tasks. She is being admitted for pseudomonal pneumonia to have treatment with IV cefepime, pulmonary consult placed to Dr. Randall. #pseudomonal PNA/ bronchiectasis patient follows with support merchandiser Dr. Randall bronchoscopy 08/05 cultures grew pansensitive Pseudomonas aeruginosa CXR negative on admission Chest CTA showed prominent mucous plugging of lung bases with patchy right lung opacities, compatible with infectious or inflammatory pneumonitis, biapical pleural parenchymal scarring with mild traction bronchiectasis non-hypoxic on admission pro-florina negative Consult pulmonology, Dr. Randall Continue cefepime; no need for atypical coverage as cultures from bronchoscopy only grew Pseudomonas follow blood cultures Continue home inhalers Continue Tessalon Perle as needed and Mucinex Promote oral hydration Incentive spirometry #Leukocytosis WBC 18.74 with neutrophil predominance on admission CRP 3.21 lactate negative Does not appear septic at this time, afebrile, VSS Trend CBC #Hyponatremia Sodium 133 on admission Chronic Trend BMP; if persistently low could consider serum osmole, urine osmole, urine sodium, tsh Chronic stable diagnoses: Barrera's esophagus - Continue omeprazole Hyperlipidemia - continue Zetia Raynaud's - continue supportive care, warm blankets chronic back pain/shoulder pain - Tylenol as needed VTE ppx: SCDs - low risk and amble to ambulate Diet: heart healthy Dispo: med/tele Admission and Anticipated Discharge Date Admission Date: 08/19/24 History of Present Illness Chief Complaint: dyspnea Primary Care Provider: Storm Castro MD Patient is a 73-year-old female with past medical history of hyperlipidemia, Raynaud's, Barrera's esophagus gas, vitamin D deficiency. She has been following with pulmonology since due to ongoing dyspnea. She was diagnosed with walking pneumonia, then developed COVID, now has a diagnosis of bronchiectasis. Denies diagnoses of asthma or COPD. She had a bronchoscopy with Dr. Randall 08/05/2024 in which he took samples of secretions that now have grown pansensitive Pseudomonas. She completed an outpatient course of Levaquin with minimal improvement. She has had worsening dyspnea on exertion that is debilitating to her daily tasks. She is being admitted for pseudomonal pneumonia to have treatment with IV cefepime, pulmonary consult placed to Dr. Randall. Patient seen at bedside. 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 She stated that she was told she has bronchiectasis and possible pneumonia and was given Levaquin that did not help her symptoms. She finished this on Friday. It did however change her mucus production from bright yellow to clear and thick. She stated over the summer she developed these pulmonology issues, she was started on albuterol inhaler, then a sodium chloride inhaler, and now on Friday she began an oral Ellipta inhaler. She feels as though these inhalers are not helping with her symptoms. She denies fevers, chills, dizziness, lightheadedness, headaches, chest pain, abdominal pain, nausea, vomiting, diarrhea. She was a former smoker however she quit 30 years ago. She does not drink alcohol. She denies past history of cancer, diabetes, previous VTE. She does not use oxygen at baseline. She did take her home medications this morning other than her cholesterol medication. She did note she takes an occasional additional omeprazole when she has acid reflux. She wishes to be DNR/DNI at this time. Patient stated she may have a rotator cuff tear of her shoulder, this is to be evaluated next week in the outpatient setting. She also stated she gets chronic back aches, has a backache on admission; will order Tylenol Allergies Allergy/AdvReac Type Severity Reaction Status Date / Time Penicillins Allergy Unknown unsure>chil Verified 07/23/24 12:18 dhood Home Medications Medication Instructions Recorded Confirmed Type multivitamin (Daily Multi-Vitamin 1 tab PO DAILY 08/19/19 01/23/25 History tablet) cholecalciferol (vitamin D3) 50 2,000 units PO DAILY 04/16/19 08/19/24 History mcg (2,000 unit) capsule ezetimibe 10 mg tablet (Zetia) 10 mg PO DAILY #30 tabs 04/08/24 08/19/24 Rx albuterol sulfate 90 mcg/actuation 2 puff inhalation QID PRN 05/24/24 08/19/24 Rx aerosol inhaler shortness of breath or wheezing #8.5 grams benzonatate 200 mg capsule 200 mg PO TID PRN cough #30 caps 05/24/24 08/19/24 Rx omeprazole 40 mg capsule,delayed 40 mg PO QAM #90 caps 06/07/24 08/19/24 Rx release guaifenesin 1,200 mg tablet, 1,200 mg PO BID #60 tabs 07/27/24 08/19/24 Rx extended release 12 hr (Mucinex) sodium chloride 3 % for 4 ml inhalation Q8H PRN secretions 07/27/24 08/19/24 Rx nebulization #120 mL umeclidinium 62.5 mcg-vilanterol 1 inh inhalation DAILY #60 ea 08/16/24 08/19/24 Rx 25 mcg/actuation powdr for inhalation (Anoro Ellipta) Past Med/Surg History Problem List Failure of outpatient treatment (Acute) Pneumonia (Acute) Leukocytosis (Acute) MCKINNEY (dyspnea on exertion) (Acute) Bronchiectasis Hyponatremia Leukocytosis Pseudomonas pneumonia Abnormal CT scan of lung Barrera esophagus Current use of proton pump inhibitor Screening for colon cancer Anemia, mild Left shoulder pain PMR (polymyalgia rheumatica) Hip pain Neck pain Mallet finger of right hand Gallbladder polyp (Acute) Elevated creatine kinase level Vitamin D deficiency (Acute) Raynauds phenomenon (Acute) Hyperlipidemia (Acute) Esophageal reflux (Acute) Diverticulosis (Acute) Medical History Barretts esophagus "mild" Internal hemorrhoids Surgical History History of esophagogastroduodenoscopy (EGD) Maynard teeth removed History of cataract surgery left Hx of detached retina repair rt/left Hx of ovarian cystectomy Hx of arthroscopy of knee left/right Hx of hernia repair 1996 Hx of colonoscopy Hx of appendectomy Family History Brother Alcoholism Inflammatory bowel diseases (IBD) Sister Asthma Grandmother (Maternal) Breast cancer Father Coronary heart disease Mother Heart disease Myocardial infarction @ 46 Other No family history of adverse response to anesthesia Denies family history of Ovarian cancer Prostate cancer Crohn's disease Colorectal cancer Social History Smoking Status: Never smoker Second Hand Exposure: No; Do You Dip or Chew Tobacco: No; Hx Alcohol Use: No Hx Substance Use: No Preferred Language: Nauruan Communication Ability: Effective Visual Impairment: No Limitations Hearing Ability: Normal Materials Planning Analyst Required: No Beliefs That Will Affect Care: None marital status: Current Living Situation: Family Current Living Situation Comment: papo current occupational status: employed 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 Non-toxic appearing. HEENT- EOMI, mucous membranes moist. Hearing grossly intact. Heart-normal S1 and S2. No murmurs, rubs or gallops. Lungs- wheezing RUL, no respiratory distress, no accessory muscle use. Abdomen-normal bowel sounds and soft. No ascites noted. Non-tender. Extremities- no clubbing, cyanosis, or edema. Rheumatologic-normal range of motion. Psychiatric-normal affect. Results & Data Results & Data Vital Signs (Past 12 Hours) Vital Signs Temp Pulse Resp BP Pulse Ox O2 Del Method O2 Flow Rate 08/19/24 16:00 99 Room Air 08/19/24 16:00 Room Air 08/19/24 15:49 93 Room Air 0 08/19/24 12:50 36.5 C 99 H 18 160/86 H 93 Room Air Laboratory Results CBC, PT/INR, CMP, troponin, CRP, COVID/flu/RSV, Pro-Florina Diagnostic Findings reviewed CXR and chest CTA Medications Administered ed - cefepime 2G iv ECG Additional Comments: sinus rhythm with PVCs, no prior to compare to Code Status & VTE Plan Code Status DNR/DNI VTE Prophylaxis Plan VTE Prophylaxis will be ordered: Yes Supervising Physician Co-Signing Physician Notes I personally saw and examined the patient. I independently reviewed the labs, EKG, imaging, problem list, medication list, past medical history and family history. I verified all hwang points and agree with Lexie Antony PA-C with the following exceptions and/or additions: 73 year old female presents to the ER with shortness of breath and cough with failed outpatient treatment with Levaquin. Pseudomonas and pasteurella canis grown in bronchoscopy on August 05. O/E HS RRR, no murmurs, Chest CTAB A/P Pseudomonas pneumonia - failed Levaquin. Start cefepime. Consult pulmonology for ongoing recommendations. PG Care Time/CCT Total # of Minutes Spent Total Time Spent with Patient: Total time spent is greater than 50% in coordination of care (as documented) at patient's floor/unit and/or counseling patient: Coding Level of Care Code 95298 INT INP/OBS CARE MIN Diagnoses Pseudomonas pneumonia J15.1 Bronchiectasis J47.9 Leukocytosis D72.829 Hyponatremia E87.1
[2024-08-19] MEDS: ACETAMINOPHEN 325 MG TAB PO STA (18:25)
[2024-08-19] MEDS ORDERED: PANTOprazole 40 MG TAB PO PRN (20:36)
[2024-08-19] MEDS ORDERED: ONDANSETRON INJ 2 MG/ML 2 ML VIAL IV PRN (20:36)
[2024-08-19] MEDS ORDERED: DOCUSATE SODIUM 100 MG CAP PO PRN (20:36)
[2024-08-19] MEDS ORDERED: BENZONATATE 100 MG CAPSULE PO PRN (20:36)
[2024-08-19] MEDS ORDERED: SODIUM CHLOR 7% 4 ML NEB INH PRN (20:42)
[2024-08-19] MEDS: EZETIMIBE 10 MG TAB PO SCH (21:50)
[2024-08-19] MEDS: guaiFENesin 600 MG TABCR PO SCH (21:50)
[2024-08-20] MEDS: CEFEPIME 2000MG 2,000 MG/20 ML SYR IV SCH (02:11)
[2024-08-20] MEDS: ACETAMINOPHEN 325 MG TAB PO PRN (02:15)
[2024-08-20 06:47] LABS: Hematocrit (blood only) 35.1 % (37.0-47.0); Hemoglobin 11.8 g/dl (12.0-16.0); Mean Corpuscular Hemoglobin 27.8 pg (25.0-34.0); Mean Corpuscular Hgb Conc 33.6 g/dL (32.0-36.0); Mean Corpuscular Volume 82.6 fL (80.0-100.0); Platelet Count 317 K/uL (130-400); RDW Coefficient of Variation 14.1 % (11.5-14.5); RDW Standard Deviation 42.2 fL (36.4-46.3); Red Blood Count 4.25 M/uL (4.20-5.40); White Blood Count 10.11 K/ul (4.8-10.8)
[2024-08-20 07:02] LABS: BUN Creatinine Ratio 21.6 (10-20); Calcium 9.4 mg/dl (8.6-10.3); Creatinine Clr Calc Pharmacy 66.9 ml/min; Magnesium 1.9 mg/dl (1.7-2.4); Potassium 3.7 mmol/L (3.5-5.1)
[2024-08-20 07:19] LABS: Basophils # (auto) 0.05 K/uL (0.00-0.20); Basophils % (auto) 0.5 %; Eosinophils # (auto) 0.52 K/uL (0.00-0.50); Eosinophils % (auto) 5.1 %; Immature Granulocytes # (auto) 0.03 K/uL (0.01-0.20); Immature Granulocytes % (auto) 0.3 %; Lymphocytes # (auto) 2.34 K/uL (1.20-3.40); Lymphocytes % (auto) 23.1 %; Monocytes # (auto) 0.76 K/uL (0.11-0.59); Monocytes % (auto) 7.5 %; Neutrophils # (auto) 6.41 K/uL (1.40-6.50); Neutrophils % (auto) 63.5 %
[2024-08-20] MEDS: UMECLIDINIUM/VILANTEROL 62.5/25MCG 7 PUFFS/INHALER INH SCH (07:46)
[2024-08-20] MEDS: PANTOprazole 40 MG TAB PO SCH (07:47)
--- NOTE | 2024-08-20 08:10 | Hospitalist Progress Note ---
Date of Service August 20, 2024 Assessment & Plan (1) Pseudomonas pneumonia: (2) Bronchiectasis: (3) Leukocytosis: (4) Hyponatremia: Plan 73-year-old woman with persistent MCKINNEY since January 2024 followed by pulmonary who was admitted with pseudomonas pneumonia. She was diagnosed with walking pneumonia, then developed COVID, now has a diagnosis of bronchiectasis. Denies diagnoses of asthma or COPD. She had a bronchoscopy with Dr. Randall 08/05/2024 in which he took samples of secretions that now have grown pansensitive Pseudomonas. She completed an outpatient course of Levaquin a week ago with minimal improvement. She has had worsening dyspnea on exertion that is debilitating to her daily tasks. CTA chest in ED with right sided opacities, mucus plugging, biapical pleural parenchymal scarring with mild traction bronchiectasis, no PE. She was admitted for pseudomonal pneumonia to have treatment with IV cefepime, pulmonary consult placed to Dr. Randall. #pseudomonal PNA/ bronchiectasis patient follows with lead android developer Dr. Randall bronchoscopy 08/05 cultures grew pansensitive Pseudomonas aeruginosa CXR negative on admission Chest CTA showed prominent mucous plugging of lung bases with patchy right lung opacities, compatible with infectious or inflammatory pneumonitis, non-hypoxic on admission pro-florina negative Consulted pulmonology, Dr. Randall - reviewed recs in his note Continue cefepime follow blood cultures Continue home inhalers Continue hypertonic saline, flutter valve Continue Tessalon Perle as needed and Mucinex Promote oral hydration Incentive spirometry WBC decreased from 18 -->10 overnight Dyspnea on exertion - considered anginal equivalent but seems unlikely and she clearly has pulmonary disease. She has no history of cardiac problems, walks her dog frequently without chest pain, clinically no heart failure on exam, BNP 94. CTA negative for pulmonary embolism. #Hyponatremia Sodium 133 on admission Chronic, mild, related to pulmonary disease, monitor Chronic stable diagnoses: Barrera's esophagus - Continue omeprazole Hyperlipidemia - continue Zetia Raynaud's - continue supportive care, warm blankets chronic back pain/shoulder pain - Tylenol as needed VTE ppx - enoxaparin Admission and Anticipated Discharge Date Admission Date: August 19, 2024 Subjective She does feel improved with respect to dyspnea cough and mucus clearance. Has been able to walk in the halls only low grade fever today, no hypoxia Physical Exam 2 Physical Exam: PHYSICAL EXAMINATION Last 24h vital signs reviewed, see documentation in flowsheet General: comfortable appearing, no distress, sitting up in bed HEENT: Normocephalic, atraumatic, pupils round and equal, sclerae anicteric, no conjunctival injection, moist mucus membranes Lungs: Normal respiratory effort. scattered coarse breath sounds and coarse crackles bilaterally. No wheezing Heart: Regular rate and rhythm, no murmurs. No JVD Abdomen: Soft, nontender, nondistended. Bowel sounds present. Extremities: Warm, dry, well-perfused. No extremity edema. Neuro: Alert and oriented x 4, face symmetric, moves 4 extremities well Psych: Normal affect and behavior Results & Data Results & Data Vital Signs (Past 12 Hours) Vital Signs Temp Pulse Pulse Resp BP Pulse Ox O2 Del Method 08/20/24 07:00 63 08/20/24 03:09 98.1 F 67 18 148/76 H 97 Room Air 08/19/24 22:35 Room Air 08/19/24 22:25 97.9 F 60 18 180/69 H 98 Room Air 08/19/24 21:57 61 08/19/24 21:04 68 08/19/24 20:35 97.7 F 69 16 147/74 H 97 Room Air 08/19/24 20:07 Room Air Laboratory Results 08/20/24 05:43 08/20/24 05:43 procal negative, CRP 3.2 PG Care Time/CCT Total # of Minutes Spent Total Time Spent with Patient: Total time spent is greater than 50% in coordination of care (as documented) at patient's floor/unit and/or counseling patient: Coding Level of Care Code 38721 SUB INP/OBS CARE 2/35MIN Diagnoses Pseudomonas pneumonia J15.1 Bronchiectasis J47.9 Leukocytosis D72.829 Hyponatremia E87.1
--- NOTE | 2024-08-20 08:17 | Pulmonary Consultation ---
Date of Consultation August 20, 2024 Assessment & Plan (1) Pneumonia: Laterality: right Lung location: unspecified part of lung Pneumonia type: due to unspecified organism Qualified Code(s): J18.9 - Pneumonia, unspecified organism (2) Bronchiectasis: (3) Pseudomonas pneumonia: Plan Impression: 73-year-old female with bronchiectasis of unclear etiology and recent outpatient treatment for Pseudomonas with levofloxacin now with progressive respiratory symptoms and CT scan showing multifocal patchy airspace opacities consistent with pneumonia. She has been initiated on cefepime and appears to be doing well clinically. Recommendations: 1. Pneumonia/bronchiectasis exacerbation: Continue cefepime for now. She is failed oral antibiotics and we do not have an additional oral alternative to try her on. I think at least a couple days of antipseudomonal penicillin would be warranted. May consider the addition of nebulized aminoglycoside to see if that offers improved clearance not be indicated for the treatment of an acute pneumonia. White count down from 18 to 10 today. Patient asked about home antibiotic therapy. Unclear if this might be an option. She would need a PICC line or midline as the frequency of antibiotics would not allow for patient infusion. Ideally, antibiotics will need to be continued for 7 days. 2. Continue pulmonary clearance techniques. Will add hypertonic saline, Mucinex, and flutter valve to her regiment. 3. Patient was encouraged to ambulate is much as possible. Above plan was reviewed with the patient in detail. Questions were answered to the best of my ability. She expressed understanding and is in agreement with the plan as outlined History of Present Illness Attending Physician: Kaia Colin MD History of Present Illness Asked by hospitalist to assist in evaluation management this patient with bronchiectasis and Pseudomonas colonization failing outpatient therapy who was admitted to the hospital. The patient is known to me from the outpatient setting. This 73-year-old female the opportunity of caring for her in the outpatient setting. She was referred to me for bronchiectasis. We performed a bronchoscopy and bronchial washings were positive for Pseudomonas which was sensitive. She completed a course of outpatient Levaquin but unfortunately had sustained issues with shortness of breath and cough. As she had failed outpatient therapy despite the addition of note Anoro she was sent to the emergency room. CT scanning was performed which showed no PE but persistent bronchiectatic changes. The patient was started on Zosyn and admitted to the hospital. Patient reports that this morning she feels better. She continues to cough but feels like phlegm is loosening up somewhat. She has not had any fevers or chills overnight. Her shortness of breath is better. Allergies Allergy/AdvReac Type Severity Reaction Status Date / Time Penicillins Allergy Unknown unsure>chil Verified 07/23/24 12:18 dhood Home Medications Medication Instructions Recorded Confirmed Type multivitamin (Daily Multi-Vitamin 1 tab PO DAILY 03/15/19 08/19/24 History tablet) cholecalciferol (vitamin D3) 50 2,000 units PO DAILY 04/16/19 08/19/24 History mcg (2,000 unit) capsule ezetimibe 10 mg tablet (Zetia) 10 mg PO DAILY #30 tabs 04/08/24 08/19/24 Rx albuterol sulfate 90 mcg/actuation 2 puff inhalation QID PRN 05/24/24 08/19/24 Rx aerosol inhaler shortness of breath or wheezing #8.5 grams benzonatate 200 mg capsule 200 mg PO TID PRN cough #30 caps 05/24/24 08/19/24 Rx omeprazole 40 mg capsule,delayed 40 mg PO QAM #90 caps 06/07/24 08/19/24 Rx release guaifenesin 1,200 mg tablet, 1,200 mg PO BID #60 tabs 07/27/24 08/19/24 Rx extended release 12 hr (Mucinex) sodium chloride 3 % for 4 ml inhalation Q8H PRN secretions 07/27/24 08/19/24 Rx nebulization #120 mL umeclidinium 62.5 mcg-vilanterol 1 inh inhalation DAILY #60 ea 08/16/24 08/19/24 Rx 25 mcg/actuation powdr for inhalation (Anoro Ellipta) Patient History Medical History Barretts esophagus "mild" Internal hemorrhoids Surgical History History of esophagogastroduodenoscopy (EGD) [place] teeth removed History of cataract surgery left Hx of detached retina repair rt/left Hx of ovarian cystectomy Hx of arthroscopy of knee left/right Hx of hernia repair 1996 Hx of colonoscopy Hx of appendectomy Family History Brother Alcoholism Inflammatory bowel diseases (IBD) Sister Asthma Grandmother (Maternal) Breast cancer Father Coronary heart disease Mother Heart disease Myocardial infarction @ 46 Other No family history of adverse response to anesthesia Denies family history of Ovarian cancer Prostate cancer Crohn's disease Colorectal cancer Social History Smoking Status: Never smoker Second Hand Exposure: No; Do You Dip or Chew Tobacco: No; Hx Alcohol Use: No Hx Substance Use: No Preferred Language: Azeri Communication Ability: Effective Visual Impairment: No Limitations Hearing Ability: Normal 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: No Beliefs That Will Affect Care: None marital status: Current Living Situation: Family Current Living Situation Comment: papo current occupational status: employed 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 Other Information That Helps Us Care for You: No Feels Safe at Home: Yes Safety Concerns: Feels Safe At This Time Childhood Exposure to Second-Hand Smoke: Yes Dental Care, Regularly: Yes Physical Activity Frequency: Daily Seatbelt Use: always Sunscreen Use: Yes Assistive Devices: Glasses Review of Systems Review of Systems: All systems reviewed & are unremarkable except as noted in Subjective Physical Exam Constitutional: WD/WN, vitals as above Neck: trachea midline, no thyromegaly Respiratory: normal respiratory effort, lungs clear to auscultation Cardiovascular: RRR, no murmur, no edema Gastrointestinal (Abdomen): normal bowel sounds, soft, nontender, no hepatosplenomegaly Musculoskeletal: Extremities: extremities normal to inspection Skin: no rashes, warm and dry Neurologic: Nonfocal exam Lymphatic: no cervical lymphadenopathy Results & Data Results & Data Vital Signs (Past 12 Hours) Vital Signs Temp Pulse Pulse Resp BP Pulse Ox O2 Del Method 08/20/24 07:00 63 08/20/24 03:09 36.7 C 67 18 148/76 H 97 Room Air 08/19/24 22:35 Room Air 08/19/24 22:25 36.6 C 60 18 180/69 H 98 Room Air 08/19/24 21:57 61 08/19/24 21:04 68 08/19/24 20:35 36.5 C 69 16 147/74 H 97 Room Air Critical Care Results & Data Vital Signs (Past 12 Hours) Vital Signs Temp Pulse Pulse Resp BP Pulse Ox O2 Del Method 08/20/24 07:00 63 08/20/24 03:09 36.7 C 67 18 148/76 H 97 Room Air 08/19/24 22:35 Room Air 08/19/24 22:25 36.6 C 60 18 180/69 H 98 Room Air 08/19/24 21:57 61 08/19/24 21:04 68 08/19/24 20:35 36.5 C 69 16 147/74 H 97 Room Air Lab & Micro Results (Past 24 Hours) RBC 4.25 M/uL (4.20-5.40) 08/20/24 WBC 10.11 K/ul (4.8-10.8) 08/20/24 Hgb 11.8 g/dl (12.0-16.0) L 08/20/24 Hct 35.1 % (37.0-47.0) L 08/20/24 MCV 82.6 fL (80.0-100.0) 08/20/24 MCH 27.8 pg (25.0-34.0) 08/20/24 MCHC 33.6 g/dL (32.0-36.0) 08/20/24 RDW Standard Deviation 42.2 fL (36.4-46.3) 08/20/24 RDW Coefficient of Variation 14.1 % (11.5-14.5) 08/20/24 Plt Count 317 K/uL (130-400) 08/20/24 MPV 10.0 fL (9.4-12.4) 08/20/24 Neutrophils (%) (Auto) 63.5 % 08/20/24 Lymphocytes (%) (Auto) 23.1 % 08/20/24 Monocytes # (Auto) 0.76 K/uL (0.11-0.59) H 08/20/24 Eosinophils # (Auto) 0.52 K/uL (0.00-0.50) H 08/20/24 Immature Granulocyte % (Auto) 0.3 % 08/20/24 Neutrophils # (Auto) 6.41 K/uL (1.40-6.50) 08/20/24 Lymphocytes # (Auto) 2.34 K/uL (1.20-3.40) 08/20/24 Monocytes # (Auto) 0.76 K/uL (0.11-0.59) H 08/20/24 Eosinophils # (Auto) 0.52 K/uL (0.00-0.50) H 08/20/24 Basophils # (Auto) 0.05 K/uL (0.00-0.20) 08/20/24 Immature Granulocyte # (Auto) 0.03 K/uL (0.01-0.20) 5 Na 133 mmol/L (136-145) L 08/20/24 K 3.7 mmol/L (3.5-5.1) 08/20/24 Cl 104 mmol/L (98-107) 08/20/24 CO2 21 mmol/L (21-32) 08/20/24 Anion Gap 8 (3-11) 08/20/24 BUN 11 mg/dl (6-23) 08/20/24 Creatinine 0.51 mg/dl (0.6-1.2) L 08/20/24 BUN/Creatinine Ratio 21.6 (10-20) H 08/20/24 Glu 82 mg/dl (70-99(Fasting)) 08/20/24 Ca 9.4 mg/dl (8.6-10.3) 08/20/24 Total Bilirubin 0.4 mg/dl (0.2-1.0) 08/19/24 AST 23 U/L (13-39) 08/19/24 ALT 14 U/L (7-52) 08/19/24 Alkaline Phosphatase 97 U/L (34-104) 08/19/24 TP 7.7 gm/dl (6.0-8.3) 08/19/24 Albumin 4.3 gm/dl (3.4-5.0) 08/19/24 Globulin 3.4 gm/dl (2.5-4.0) 08/19/24 Albumin/Globulin Ratio 1.3 (0.9-2) 08/19/24 Mg 1.9 mg/dl (1.7-2.4) 08/20/24 05:43 Calcium Level 9.4 mg/dl (8.6-10.3) 08/20/24 05:43 Prothromb Time International Ratio 1.0 (0.9-1.1) 08/19/24 13:0 6 Diagnostic Findings (Past 24 Hours) Chest X-Ray 08/19/24 12:55 XR chest 1V not portable CLINICAL HISTORY: Chest pain, nonspecific COMPARISON STUDY: 05/10/2024 FINDINGS: Heart size and pulmonary vasculature are normal. Stable hyperexpanded lungs. No consolidation, pleural effusion, or pneumothorax. Stable mild scarring in the apices. IMPRESSION: No acute findings. ACT 112: Negative or not required by law. Electronically signed by: Jose Dnaiel Fraire M.D. 08/19/2024 2:11 PM Chest CTA 08/19/24 14:29 CT angio chest PE protocol CT DOSE: 260.81 mGy.cm HISTORY: 73 years-old Female with PE. Acute shortness of breath TECHNIQUE: Multiple CTA images of the chest were obtained after the intravenous administration of 120 ml Optiray. Coronal and sagittal MIPS were obtained from the axial data set and were submitted for review. All measurements were obtained according to NASCET criteria. A dose lowering technique was utilized adhering to the principles of ALARA. COMPARISON: Chest CT 07/07/2024 FINDINGS: CTA: Mild cardiomegaly. Moderate coronary artery calcifications. Fusiform dilation of the aortic isthmus and proximal descending thoracic aorta measures up to 3.6 cm transversely, unchanged. No pulmonary emboli identified. CT CHEST: No thyroid nodule or pathologically enlarged lymph nodes identified within the chest. There is no pneumothorax, pleural effusion or overt pulmonary edema. Biapical pleural parenchymal scarring with areas of traction bronchiectasis. Pro minent bibasilar mucous plugging. Mild consolidation with bronchiectasis of the inferior segment lingula. Patchy groundglass opacities throughout the right lung with bronchovascular distribution of consolidation/ground glass densities in the basal right lower lobe. No suspicious pulmonary nodules or masses identified. No acute upper abdominal abnormality. Cyst of the superior pole left kidney. Unremarkable soft tissues. Mild mid thoracic levoscoliosis. No acute fracture. IMPRESSION: 1. No pulmonary emboli identified. 2. Prominent mucus plugging of the lung bases with patchy right lung opacities compatible with an infectious or inflammatory pneumonitis. 3. Biapical pleural-parenchymal scarring with mild traction bronchiectasis. 4. No pleural effusion or lymphadenopathy. ACT 112: Negative or not required by law. The above report was generated using voice recognition software. It may contain grammatical, syntax or spelling errors. Electronically signed by: Rishi Souza M.D. 08/19/2024 3:02 PM I & O Totals 24 Hours 08/19/24 08/20/24 08/21/24 06:59 06:59 06:59 Intake Total 250 / 250 Balance 250 / 250 Cumulative 08/19/24 12:46 thru 08/20/24 06:00 Intake Total 250 Balance 250 RT Ventilator Mngmt (Last Documented) Ventilator Ordered Settings Respiratory Rate 18 08/20/24 03:09 Ventilator - PT Measurements Respiratory Rate 18 PG Care Time/CCT Total # of Minutes Spent Total Time Spent with Patient: Total time spent is greater than 50% in coordination of care (as documented) at patient's floor/unit and/or counseling patient: Coding Level of Care Code 76825 INT INP/OBS CARE MIN Diagnoses Pneumonia J18.9 Laterality: right Lung location: unspecified part of lung Pneumonia type: due to unspecified organism Bronchiectasis J47.9 Pseudomonas pneumonia J15.1
[2024-08-20] MEDS: ENOXAPARIN INJ 40 MG/0.4 ML SYR SQ SCH (08:43)
[2024-08-20] MEDS: SODIUM CHLOR 7% 4 ML NEB INH SCH (08:53)
[2024-08-20] MEDS: ALBUTEROL HFA 8 GM INHALER INH PRN (15:36)
[2024-08-21 06:18] LABS: Basophils # (auto) 0.04 K/uL (0.00-0.20); Basophils % (auto) 0.4 %; Eosinophils # (auto) 0.59 K/uL (0.00-0.50); Eosinophils % (auto) 6.3 %; Hematocrit (blood only) 35.7 % (37.0-47.0); Hemoglobin 11.9 g/dl (12.0-16.0); Immature Granulocytes # (auto) 0.04 K/uL (0.01-0.20); Immature Granulocytes % (auto) 0.4 %; Lymphocytes # (auto) 1.94 K/uL (1.20-3.40); Lymphocytes % (auto) 20.6 %; Mean Corpuscular Hemoglobin 27.7 pg (25.0-34.0); Mean Corpuscular Hgb Conc 33.3 g/dL (32.0-36.0); Mean Corpuscular Volume 83.2 fL (80.0-100.0); Monocytes # (auto) 0.67 K/uL (0.11-0.59); Monocytes % (auto) 7.1 %; Neutrophils # (auto) 6.16 K/uL (1.40-6.50); Neutrophils % (auto) 65.2 %; Platelet Count 359 K/uL (130-400); RDW Standard Deviation 42.9 fL (36.4-46.3); Red Blood Count 4.29 M/uL (4.20-5.40); White Blood Count 9.44 K/ul (4.8-10.8)
[2024-08-21 06:23] LABS: Calcium 9.5 mg/dl (8.6-10.3); Creatinine Clr Calc Pharmacy 68.4 ml/min
[2024-08-21] MEDS ORDERED: ALBUT/IPRATROP 3MG/0.5MG NEB 3 ML VIAL NEB PRN (09:26)
--- NOTE | 2024-08-21 09:31 | Pulmonology Progress Note ---
Date of Service August 21, 2024 Assessment & Plan (1) Pneumonia: Laterality: right Lung location: unspecified part of lung Pneumonia type: due to unspecified organism Qualified Code(s): J18.9 - Pneumonia, unspecified organism (2) Bronchiectasis: (3) Pseudomonas pneumonia: Plan Impression: 73-year-old female with bronchiectasis of unclear etiology and recent outpatient treatment for Pseudomonas with levofloxacin now with progressive respiratory symptoms and CT scan showing multifocal patchy airspace opacities consistent with pneumonia. She has been initiated on cefepime and appears to be doing well clinically. Recommendations: 1. Pneumonia/bronchiectasis exacerbation: Continue cefepime for now. She failed oral antibiotics and we do not have an additional oral alternative to try her on. I think at least a couple days of antipseudomonal penicillin would be warranted. May consider the addition of nebulized aminoglycoside in the outpatient setting to see if that offers improved clearance, not indicated for the treatment of an acute pneumonia. White count now normal today. 2. Continue pulmonary clearance techniques with Mucinex and hypertonic saline. Discontinue Anoro and place her on DuoNebs every 6 hours as needed for wheezing as well as nebulized Perforomist and budesonide as well as Incruse to see if thi s offers her a clinical benefit. Continue flutter valve. 3. Patient was encouraged to ambulate is much as possible. Above plan was reviewed with the patient in detail. Questions were answered to the best of my ability. She expressed understanding and is in agreement with the plan as outlined Admission and Anticipated Discharge Date Admission Date: August 19, 2024 Subjective Patient seen and examined. EMR reviewed. The patient reports that she felt better yesterday but is feeling a little bit worse today. She is coughing and occasionally clearing up some yellowish phlegm. No hemoptysis. She denies fevers or chills. She is tolerating a diet. She feels she is wheezing more and does feel better with the albuterol. She declined the Anoro yesterday for reasons that are not entirely clear Review of Systems Review of Systems: All systems reviewed & are unremarkable except as noted in Subjective Physical Exam Constitutional: WD/WN, vitals as above Neck: trachea midline, no thyromegaly Respiratory: normal respiratory effort, lungs clear to auscultation Cardiovascular: RRR, no murmur, no edema Gastrointestinal (Abdomen): normal bowel sounds, soft, nontender, no hepatosplenomegaly Musculoskeletal: Extremities: extremities normal to inspection Skin: no rashes, warm and dry Lymphatic: no cervical lymphadenopathy Results & Data Results & Data Vital Signs (Past 12 Hours) Vital Signs Temp Pulse Resp BP Pulse Ox O2 Del Method 08/21/24 07:53 36.5 C 70 158/60 H 92 Room Air 08/21/24 07:22 Room Air 08/21/24 06:59 77 18 94 Room Air 08/20/24 23:13 36.6 C 66 20 121/64 94 Room Air PG Care Time/CCT Total # of Minutes Spent Total Time Spent with Patient: Total time spent is greater than 50% in coordination of care (as documented) at patient's floor/unit and/or counseling patient: Coding Level of Care Code 81479 SUB INP/OBS CARE 2/35MIN Diagnoses Pneumonia J18.9 Laterality: right Lung location: unspecified part of lung Pneumonia type: due to unspecified organism Bronchiectasis J47.9 Pseudomonas pneumonia J15.1
[2024-08-21] MEDS: FORMOTEROL 20 MCG/2 ML VIAL NEB SCH (10:55)
[2024-08-21] MEDS: UMECLIDINIUM BROMIDE 62.5MCG/BLISTER 7 PUFFS/INHALER INH SCH (12:50)
--- NOTE | 2024-08-21 17:56 | Hospitalist Progress Note ---
Date of Service August 21, 2024 Assessment & Plan (1) Pseudomonas pneumonia: (2) Bronchiectasis: (3) Leukocytosis: (4) Hyponatremia: Plan 73-year-old woman with persistent MCKINNEY since January 2024 followed by pulmonary who was admitted with pseudomonas pneumonia. She was diagnosed with walking pneumonia, then developed COVID, now has a diagnosis of bronchiectasis. Denies diagnoses of asthma or COPD. She had a bronchoscopy with Dr. Randall 08/05/2024 in which he took samples of secretions that now have grown pansensitive Pseudomonas. She completed an outpatient course of Levaquin a week ago with minimal improvement. She has had worsening dyspnea on exertion that is debilitating to her daily tasks. CTA chest in ED with right sided opacities, mucus plugging, biapical pleural parenchymal scarring with mild traction bronchiectasis, no PE. She was admitted for pseudomonal pneumonia to have treatment with IV cefepime, pulmonary consult #pseudomonal PNA/ bronchiectasis bronchoscopy 08/05 cultures grew pansensitive Pseudomonas aeruginosa CXR negative on admission Chest CTA showed prominent mucous plugging of lung bases with patchy right lung opacities, compatible with infectious or inflammatory pneumonitis, non-hypoxic on admission pro-florina negative Consulted pulmonology, Dr. Randall - discussed with him today Continue cefepime 7-10 day course follow blood cultures Continue home inhalers Continue hypertonic saline, flutter valve Continue Tessalon Perle as needed and Mucinex Promote oral hydration Incentive spirometry WBC 18 on admission and normalized Dyspnea on exertion - considered anginal equivalent but seems unlikely and she clearly has pulmonary disease. She has no history of cardiac problems, walks her dog frequently without chest pain, clinically no heart failure on exam, BNP 94. CTA negative for pulmonary embolism. #Hyponatremia Sodium 133 on admission Chronic, mild, related to pulmonary disease, monitor 134 today Chronic stable diagnoses: Barrera's esophagus - Continue omeprazole Hyperlipidemia - continue Zetia Raynaud's - continue supportive care, warm blankets chronic back pain/shoulder pain - Tylenol as needed VTE ppx - enoxaparin Admission and Anticipated Discharge Date Admission Date: August 19, 2024 Subjective feels generally better, barely started to clear mucus, has been walking the hallways Physical Exam 2 Physical Exam: PHYSICAL EXAMINATION Last 24h vital signs reviewed, see documentation in flowsheet General: comfortable appearing, no distress, sitting up in bed HEENT: Normocephalic, atraumatic, pupils round and equal, sclerae anicteric, no conjunctival injection, moist mucus membranes Lungs: Normal respiratory effort. scattered coarse breath sounds and coarse crackles bilaterally generally improved. No wheezing Heart: Regular rate and rhythm, no murmurs. No JVD Abdomen: Soft, nontender, nondistended. Bowel sounds present. Extremities: Warm, dry, well-perfused. No extremity edema. Neuro: Alert and oriented x 4, face symmetric, moves 4 extremities well Psych: Normal affect and behavior Results & Data Results & Data Vital Signs (Past 12 Hours) Vital Signs Temp Pulse Resp BP Pulse Ox O2 Del Method 08/21/24 15:39 97.5 F L 162/67 H Room Air 08/21/24 15:15 18 95 Room Air 08/21/24 10:55 18 96 Room Air 08/21/24 07:53 97.7 F 70 158/60 H 92 Room Air 08/21/24 07:22 Room Air 08/21/24 06:59 77 18 94 Room Air Laboratory Results 08/21/24 05:32 08/21/24 05:32 PG Care Time/CCT Total # of Minutes Spent Total Time Spent with Patient: Total time spent is greater than 50% in coordination of care (as documented) at patient's floor/unit and/or counseling patient: Coding Level of Care Code 62604 SUB INP/OBS CARE 235MIN Diagnoses Pseudomonas pneumonia J15.1 Bronchiectasis J47.9 Leukocytosis D72.829 Hyponatremia E87.1
[2024-08-21] MEDS: BUDESONIDE 0.5 MG/2 ML VIAL (PULMICORT) NEB SCH (20:36)
[2024-08-22] MEDS: PANTOprazole 40 MG TAB PO STA (00:36)
--- NOTE | 2024-08-22 08:23 | XRay Report ---
XR chest 1V portable CLINICAL HISTORY: pna COMPARISON STUDY: 08/19/2024 FINDINGS: Heart size and pulmonary vasculature are normal. Stable scarring in the lung apices. Stable emphysema. No consolidation or pleural effusion. No pneumothorax. IMPRESSION: No acute findings. ACT 112: Negative or not required by law. Electronically signed by: Jose Daniel Fraire M.D. 08/22/2024 8:22 AM
--- NOTE | 2024-08-22 12:03 | Pulmonology Progress Note ---
Date of Service August 22, 2024 Assessment & Plan (1) Pneumonia: Laterality: right Lung location: unspecified part of lung P neumonia type: due to unspecified organism Qualified Code(s): J18.9 - Pneumonia, unspecified organism (2) Bronchiectasis: (3) Pseudomonas pneumonia: Plan Impression: 73-year-old female with bronchiectasis of unclear etiology and recent outpatient treatment for Pseudomonas with levofloxacin now with progressive respiratory symptoms and CT scan showing multifocal patchy airspace opacities consistent with pneumonia. She has been initiated on cefepime and appears to be doing well clinically. Recommendations: 1. Pneumonia/bronchiectasis exacerbation: Continue cefepime for now. She failed oral Levaquin despite her sputum culture demonstrating sensitivity to fluoroquinolones. I think at least a couple days of antipseudomonal cephalosporin would be warranted. Patient wants to continue an additional 24 hours of IV cefepime. At that point time if she continues to do well, could transition to oral ciprofloxacin for an additional 7 days 2. Continue pulmonary clearance techniques with Mucinex and hypertonic saline. Continue DuoNebs every 6 hours as needed for wheezing as well as nebulized Perforomist and budesonide as well as Incruse. She may need to go home on this regiment. She has a nebulizer at home. Continue flutter valve. 3. Patient was encouraged to ambulate is much as possible. Above plan was reviewed with the patient in detail. She wants to remain in the hospital for an additional 24 hours which I think is reasonable. If she discharges tomorrow, would recommend outpatient regimen as noted above. I would be happy to see her back in clinic at follow-up Admission and Anticipated Discharge Date Admission Date: August 19, 2024 Subjective Patient seen and examined. EMR reviewed. The patient reports that she is feeling better. The transition to nebulized medications yesterday did offer her some benefit. Her cough has been more productive. She is not experiencing fevers, chills, or night sweats. She is tolerating the antibiotics well without any adverse effects. She is nervous about going home too soon and losing the gains that she has made. Review of Systems 2 Review of Systems: All systems reviewed & are unremarkable except as noted in Subjective Physical Exam 2 Constitutional: WD/WN, vitals as above Neck: trachea midline, no thyromegaly Respiratory: normal respiratory effort, lungs clear to auscultation Cardiovascular: RRR, no murmur, no edema Gastrointestinal (Abdomen): normal bowel sounds, soft, nontender, no hepatosplenomegaly Musculoskeletal: Extremities: extremities normal to inspection Skin: no rashes, warm and dry Lymphatic: no cervical lymphadenopathy Results & Data Results & Data Vital Signs (Past 12 Hours) Vital Signs Temp Pulse Resp BP Pulse Ox O2 Del Method 08/22/24 07:30 Room Air 08/22/24 07:23 36.3 C L 69 17 154/74 H 98 Nebulizer 08/22/24 07:17 70 16 94 Room Air Laboratory Results 08/21/24 05:32 08/21/24 05:32 Diagnostic Findings Chest x-ray today was independently reviewed. The upper lobe bronchovascular markings are still prominent, mildly improved from previous. No new airspace opacity or infiltrates identified PG Care Time/CCT Total # of Minutes Spent Total Time Spent with Patient: Total time spent is greater than 50% in coordination of care (as documented) at patient's floor/unit and/or counseling patient: Coding Level of Care Code 79122 SUB INP/OBS CARE 2/35MIN Diagnoses Pneumonia J18.9 Laterality: right Lung location: unspecified part of lung Pneumonia type: due to unspecified organism Bronchiectasis J47.9 Pseudomonas pneumonia J15.1
[2024-08-22] MEDS: PANTOprazole 40 MG TAB PO SCH (14:45)
[2024-08-22] MEDS ORDERED: PANTOprazole 40 MG TAB PO PRN (15:54)
--- NOTE | 2024-08-22 18:50 | Hospitalist Progress Note ---
Date of Service August 22, 2024 Assessment & Plan (1) Pseudomonas pneumonia: (2) Bronchiectasis: (3) Leukocytosis: (4) Hyponatremia: Plan 73-year-old woman with persistent MCKINNEY since January 2024 followed by pulmonary who was admitted with pseudomonas pneumonia. She was diagnosed with walking pneumonia, then developed COVID, now has a diagnosis of bronchiectasis. Denies diagnoses of asthma or COPD. She had a bronchoscopy with Dr. Randall 08/05/2024 in which he took samples of secretions that now have grown pansensitive Pseudomonas. She completed an outpatient course of Levaquin a week ago with minimal improvement. She has had worsening dyspnea on exertion that is debilitating to her daily tasks. CTA chest in ED with right sided opacities, mucus plugging, biapical pleural parenchymal scarring with mild traction bronchiectasis, no PE. She was admitted for pseudomonal pneumonia to have treatment with IV cefepime, pulmonary consult #pseudomonal PNA/ bronchiectasis bronchoscopy 08/05 cultures grew pansensitive Pseudomonas aeruginosa CXR negative on admission Chest CTA showed prominent mucous plugging of lung bases with patchy right lung opacities, compatible with infectious or inflammatory pneumonitis, non-hypoxic on admission WBC 18 on admission and normalized with antibiotics pro-florina negative Consulted pulmonology, Dr. Randall Continue cefepime - if still improving tomorrow consider home on ciprofloxacin, follow blood cultures - no growth to date at 48 hours Continue hypertonic saline, nebulized steroid and long-acting beta antagonist, flutter valve Continue Tessalon Perle as needed and Mucinex Promote oral hydration Incentive spirometry Dyspnea on exertion - considered anginal equivalent but seems unlikely and she clearly has pulmonary disease. She has no history of cardiac problems, walks her dog frequently without chest pain, clinically no heart failure on exam, BNP 94. CTA negative for pulmonary embolism. #Hyponatremia Sodium 133 on admission Chronic, mild, related to pulmonary disease, monitor 134 on 08/21 Chronic stable diagnoses: Barrera's esophagus - Continue omeprazole Hyperlipidemia - continue Zetia Raynaud's - continue supportive care, warm blankets chronic back pain/shoulder pain - Tylenol as needed VTE ppx - enoxaparin Admission and Anticipated Discharge Date Admission Date: August 19, 2024 Subjective continues to slowly improve, now clearing more mucus, has been up walking around frequently Physical Exam 2 Physical Exam: PHYSICAL EXAMINATION Last 24h vital signs reviewed, see documentation in flowsheet General: comfortable appearing, no distress, sitting up in bed HEENT: Normocephalic, atraumatic, pupils round and equal, sclerae anicteric, no conjunctival injection, moist mucus membranes Lungs: Normal respiratory effort. distant but clear bilaterally. No wheezing Heart: Regular rate and rhythm, no murmurs. No JVD Abdomen: nondistended Extremities: Warm, dry, well-perfused. No extremity edema. Neuro: Alert and oriented x 4, face symmetric, moves 4 extremities well Psych: Normal affect and behavior Results & Data Results & Data Vital Signs (Past 12 Hours) Vital Signs Temp Pulse Resp BP Pulse Ox O2 Del Method 08/22/24 14:28 16 95 Room Air 08/22/24 14:05 97.3 F L 68 17 137/81 95 Room Air 08/22/24 07:30 Room Air 08/22/24 07:23 97.3 F L 69 17 154/74 H 98 Nebulizer 08/22/24 07:17 70 16 94 Room Air Laboratory Results 08/21/24 05:32 08/21/24 05:32 PG Care Time/CCT Total # of Minutes Spent Total Time Spent with Patient: Total time spent is greater than 50% in coordination of care (as documented) at patient's floor/unit and/or counseling patient: Coding Level of Care Code 02741 SUB INP/OBS CARE 2/35MIN Diagnoses Pseudomonas pneumonia J15.1 Bronchiectasis J47.9 Leukocytosis D72.829 Hyponatremia E87.1
--- NOTE | 2024-08-23 10:22 | Pulmonology Progress Note ---
Date of Service August 23, 2024 Assessment & Plan (1) Pneumonia: Laterality: right Lung location: unspecified part of lung P neumonia type: due to unspecified organism Qualified Code(s): J18.9 - Pneumonia, unspecified organism (2) Bronchiectasis: (3) Pseudomonas pneumonia: Plan Impression: 73-year-old female with bronchiectasis of unclear etiology and recent outpatient treatment for Pseudomonas with levofloxacin now with progressive respiratory symptoms and CT scan showing multifocal patchy airspace opacities consistent with pneumonia. She has been initiated on cefepime and appears to be doing well clinically. CTA chest 08/19/2024 personally reviewed: Bilateral apical pleural scarring Patchy groundglass opacities appreciated in the right upper lobe as well as right middle lobe Tree-in-bud opacities in the right lower lobe Significant mucous plugging especially of the RBI as well as subsegments in the left lower lobe No significant mediastinal lymphadenopathy -- Multilobar pneumonia Bronc culture from 08/05/2024 was positive for pansensitive Pseudomonas as well as Pasteurella oralis Patient was given Levaquin as an outpatient but she did not find any improvement and there is admitted to the hospital --Bronchiectasis with mucous plugging Mostly in the upper lobes with tree-in-bud opacities in the right lower lobe 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 Repeat sputum culture as an outpatient. If she still has persistent Pseudomonas then consideration with tobramycin nebulized could be thought of by outpatient pulmonary. Continue with airway clearance technique with hypertonic saline nebulized twice a day, Mucinex and flutter valve. Consideration for chest vest therapy with outpatient pulmonary if the above measures does not help Please note the above document was generated using voice recognition software. It may contain grammatical, syntax or spelling errors.Any formal questions or concerns about the content, text or information contained within the body of this dictation should be directly addressed to the provider for clarification. Admission and Anticipated Discharge Date Admission Date: August 19, 2024 Subjective Patient seen and examined at bedside. No acute distress, no adverse events overnight She was saturating 97% on room air Overall she says she is feeling better compared to when she came to the hospital Still complaining of some chest tightness. Denies any headache or blurry vision She does have nebulizers at home and says that she is compliant with it along with flutter valve Denies any hemoptysis Review of Systems 2 Review of Systems: All systems reviewed & are unremarkable except as noted in Subjective Physical Exam 2 Physical Exam: Constitutional: No acute distress HEENT: EOMI, PERRLA Respiratory system: Decreased air entry bilaterally, no wheeze, no rhonchi, positive crackles bilateral lower lobes CVS: S1-S2 positive, no murmurs or gallops Abdomen: Soft, nontender, nondistended, positive bowel sounds x4 Extremities: +2 pulses bilaterally radialis/ dorsalis pedis, no cyanosis, no edema Neuro: Awake alert oriented x3 Psych: Normal mood and affect G/U: No Peterson Skin: no rashes, warm and dry Lymphatic: no cervical or axillary lymphadenopathy Results & Data Results & Data Vital Signs (Past 12 Hours) Vital Signs Temp Pulse Resp BP Pulse Ox O2 Del Method 08/23/24 07:34 37.0 C 77 17 120/72 100 Nebulizer 08/23/24 07:26 86 18 91 Room Air 08/22/24 23:30 76 18 94 Room Air Laboratory Results 08/21/24 05:32 08/21/24 05:32 PG Care Time/CCT Total # of Minutes Spent Total Time Spent with Patient: Total time spent is greater than 50% in coordination of care (as documented) at patient's floor/unit and/or counseling patient: Coding Level of Care Code 44085 SUB INP/OBS CARE 2/35MIN Diagnoses Pneumonia J18.9 Laterality: right Lung location: unspecified part of lung Pneumonia type: due to unspecified organism Bronchiectasis J47.9 Pseudomonas pneumonia J15.1
--- NOTE | 2024-08-23 19:16 | Hospitalist Progress Note ---
Date of Service August 23, 2024 Assessment & Plan (1) Pseudomonas pneumonia: (2) Bronchiectasis: (3) Leukocytosis: (4) Hyponatremia: Plan 73-year-old woman with persistent MCKINNEY since January 2024 followed by pulmonary who was admitted with pseudomonas pneumonia. She was diagnosed with walking pneumonia, then developed COVID, now has a diagnosis of bronchiectasis. Denies diagnoses of asthma or COPD. She had a bronchoscopy with Dr. Randall 08/05/2024 in which he took samples of secretions that now have grown pansensitive Pseudomonas and pasturella canis. She completed an outpatient course of Levaquin a week ago with minimal improvement. She has had worsening dyspnea on exertion that is debilitating to her daily tasks. CTA chest in ED with right sided opacities, mucus plugging, biapical pleural parenchymal scarring with mild traction bronchiectasis, no PE. She was admitted for pseudomonal pneumonia to have treatment with IV cefepime, pulmonary consult #pseudomonal PNA/ bronchiectasis bronchoscopy 08/05 cultures grew pansensitive Pseudomonas aeruginosa, pasturella Chest CTA showed prominent mucous plugging of lung bases with patchy right lung opacities, compatible with infectious or inflammatory pneumonitis, non-hypoxic on admission WBC 18 on admission and normalized with antibiotics pro-florina negative follow blood cultures - no growth to date at 48 hours Continue hypertonic saline, nebulized steroid and long-acting beta antagonist, flutter valve Continue Tessalon Perle as needed and Mucinex Added chest PT with percussion vest Discussed with Dr. Hackett Continue cefepime Ok to go home at any point she feels well at this time - hoping for tomorrow on cipro or levaquim (see pulm note) Dyspnea on exertion - considered anginal equivalent but seems unlikely and she clearly has pulmonary disease. She has no history of cardiac problems, walks her dog frequently without chest pain, clinically no heart failure on exam, BNP 94. CTA negative for pulmonary embolism. Improving with pulmonary treatments and antibiotics. #Hyponatremia Sodium 133 on admission Chronic, mild, related to pulmonary disease, monitor 134 on 08/21 Chronic stable diagnoses: Barrera's esophagus - Continue omeprazole Hyperlipidemia - continue Zetia Raynaud's - continue supportive care, warm blankets chronic back pain/shoulder pain - Tylenol as needed VTE ppx - enoxaparin Admission and Anticipated Discharge Date Admission Date: August 19, 2024 Subjective still feels chest pressure/congestion and hard to clear mucus does feel much better than on admission Physical Exam 2 Physical Exam: PHYSICAL EXAMINATION Last 24h vital signs reviewed, see documentation in flowsheet General: comfortable appearing, no distress, sitting up in bed HEENT: Normocephalic, atraumatic, pupils round and equal, sclerae anicteric, no conjunctival injection, moist mucus membranes Lungs: Normal respiratory effort. distant but mostly clear bilaterally. No wheezing. Few coarse scattered ronchi Heart: Regular rate and rhythm, no murmurs. No JVD Abdomen: nondistended Extremities: Warm, dry, well-perfused. No extremity edema. Neuro: Alert and oriented x 4, face symmetric, moves 4 extremities well Psych: Normal affect and behavior Results & Data Results & Data Vital Signs (Past 12 Hours) Vital Signs Temp Pulse Resp BP Pulse Ox O2 Del Method 08/23/24 15:40 78 18 93 Room Air 08/23/24 14:42 97.9 F 76 16 114/71 94 Room Air 08/23/24 07:34 98.6 F 77 17 120/72 100 Nebulizer 08/23/24 07:26 86 18 91 Room Air 08/23/24 07:20 Room Air Laboratory Results 08/21/24 05:32 08/21/24 05:32 PG Care Time/CCT Total # of Minutes Spent Total Time Spent with Patient: Total time spent is greater than 50% in coordination of care (as documented) at patient's floor/unit and/or counseling patient: Coding Level of Care Code 51845 SUB INP/OBS CARE 2/35MIN Diagnoses Pseudomonas pneumonia J15.1 Bronchiectasis J47.9 Leukocytosis D72.829 Hyponatremia E87.1
--- NOTE | 2024-08-24 08:02 | Pulmonology Progress Note ---
Date of Service August 24, 2024 Assessment & Plan (1) Pneumonia: Laterality: right Lung location: unspecified part of lung P neumonia type: due to unspecified organism Qualified Code(s): J18.9 - Pneumonia, unspecified organism (2) Bronchiectasis: (3) Pseudomonas pneumonia: Plan Impression: 73-year-old female with bronchiectasis of unclear etiology and recent outpatient treatment for Pseudomonas with levofloxacin now with progressive respiratory symptoms and CT scan showing multifocal patchy airspace opacities consistent with pneumonia. She has been initiated on cefepime and appears to be doing well clinically. CTA chest 08/19/2024 personally reviewed: Bilateral apical pleural scarring Patchy groundglass opacities appreciated in the right upper lobe as well as right middle lobe Tree-in-bud opacities in the right lower lobe Significant mucous plugging especially of the RBI as well as subsegments in the left lower lobe No significant mediastinal lymphadenopathy -- Multilobar pneumonia Bronc culture from 08/05/2024 was positive for pansensitive Pseudomonas as well as Pasteurella oralis Patient was given Levaquin as an outpatient but she did not find any improvement and there is admitted to the hospital --Bronchiectasis with mucous plugging Mostly in the upper lobes with tree-in-bud opacities in the right lower lobe 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 Repeat sputum culture as an outpatient. If she still has persistent Pseudomonas then consideration with tobramycin nebulized could be thought of by outpatient pulmonary. Continue with airway clearance technique with hypertonic saline nebulized twice a day, Mucinex and flutter valve. I do think patient will benefit from chest vest therapy as she did find benefit while she was in the hospital. 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 Case was discussed with primary team Please note the above document was generated using voice recognition software. It may contain grammatical, syntax or spelling errors.Any formal questions or concerns about the content, text or information contained within the body of this dictation should be directly addressed to the provider for clarification. Admission and Anticipated Discharge Date Admission Date: August 19, 2024 Subjective Patient seen and examined at bedside. No acute distress, no adverse events overnight She was saturating 95-96% on room air She used the chest vest therapy overnight and stated that it helped more than the Mucinex and flutter valve to help her bring up the phlegm Is still clear. No hemoptysis Denies any nausea vomiting Fair appetite. Still complains of some chest tightness Review of Systems 2 Review of Systems: All systems reviewed & are unremarkable except as noted in Subjective Physical Exam 2 Physical Exam: Constitutional: No acute distress HEENT: EOMI, PERRLA Respiratory system: Decreased air entry bilaterally, no wheeze, positive rhonchi bilaterally more on the left side, positive crackles bilateral lower lobes CVS: S1-S2 positive, no murmurs or gallops Abdomen: Soft, nontender, nondistended, positive bowel sounds x4 Extremities: +2 pulses bilaterally radialis/ dorsalis pedis, no cyanosis, no edema Neuro: Awake alert oriented x3 Psych: Normal mood and affect G/U: No Peterson Skin: no rashes, warm and dry Lymphatic: no cervical or axillary lymphadenopathy Results & Data Results & Data Vital Signs (Past 12 Hours) Vital Signs Temp Pulse Resp BP Pulse Ox O2 Del Method 08/24/24 07:20 73 18 94 Room Air 08/24/24 07:13 36.9 C 77 16 134/56 L 94 Room Air 08/23/24 20:26 84 18 94 Room Air Laboratory Results 08/21/24 05:32 08/21/24 05:32 PG Care Time/CCT Total # of Minutes Spent Total Time Spent with Patient: Total time spent is greater than 50% in coordination of care (as documented) at patient's floor/unit and/or counseling patient: Coding Level of Care Code 84738 SUB INP/OBS CARE 2/35MIN Diagnoses Pneumonia J18.9 Laterality: right Lung location: unspecified part of lung Pneumonia type: due to unspecified organism Bronchiectasis J47.9 Pseudomonas pneumonia J15.1
[2024-08-24 10:35] LABS: BUN Creatinine Ratio 25.9 (10-20); Calcium 9.1 mg/dl (8.6-10.3); Creatinine Clr Calc Pharmacy 64.1 ml/min; Potassium 3.6 mmol/L (3.5-5.1)
[2024-08-24] MEDS: ACETYLCYSTEINE 20% INHAL SOLN 4ML ***DISPENSED BY RESP. INH SCH (14:16)
--- NOTE | 2024-08-24 20:12 | Hospitalist Progress Note ---
Date of Service August 24, 2024 Assessment & Plan (1) Pseudomonas pneumonia: Plan: 73yo female with persistent MCKINNEY since January 2024 followed by [facility] pulmonary who was admitted with pseudomonas pneumonia. s/p bronchoscopy with Dr. Randall 08/05/2024 - bronch cx grew pansensitive Pseudomonas and pasturella canis. She completed an outpatient course of Levaquin a week ago with minimal improvement. CTA chest in ED with right sided opacities, mucus plugging, biapical pleural parenchymal scarring with mild traction bronchiectasis, no PE. She was admitted for pseudomonal pneumonia to have treatment with IV cefepime. Today is day #5 of Cefepime IV. Plan PO Cipro at d/c for 9 more days for total of 14 days of IV/PO therapy. (2) Bronchiectasis: Plan: thus far poor response to mucinex, saline nebs, bronchodilators, and flutter valve thus, added chest vibration vest BID also today added mucomyst BID will send home with all of the above cont abx as above in #1 (3) Leukocytosis: Plan: WBC 18 at admission now <10 2nd to #1 (4) Hyponatremia: Plan: chronic since 06/2024 Na level 133 today stable Plan Chronic stable diagnoses: Barrera's esophagus - Continue omeprazole Hyperlipidemia - continue Zetia Raynaud's - continue supportive care chronic back pain/shoulder pain - Tylenol as needed VTE ppx - enoxaparin 40mg daily today I completed a form to secure a chest vibration vest for her for home use again she has trialed mucinex, saline nebs, bronchodilators, flutter valve, etc to help with mucous clearance to no avail in the setting of her bronchiectasis thus, needs the chest vibration vest which she states IS helping care d/w Dr Hackett multiple times today unfortunately her pharmacy does not have the mucomyst in stock it has been ordered; hopefully will be available tomorrow no discharge but hopefully can send home tomorrow on 08/25 Admission and Anticipated Discharge Date Admission Date: August 19, 2024 Subjective patient complains of ongoing chest/lung tightness feels she can't get the mucous out despite use of saline nebs, albuterol nebs, and mucinex she does feel that the chest vibration vest helps - has had some mucous production following use of such denies dyspnea on exertion denies fevers eating ok Review of Systems Review of Systems: gen - no fevers or chills pulm - mild wheezing GI - no abd pain or N/V Physical Exam Physical Exam: gen - thin, NAD neck - no JVD mouth - MMM, no thrush heart - RRR, s1 s2, no murmur lungs - mild end-exp wheezes R>L, minimal rales bases, no increased work of breathing, airation wnl abd - soft NT ND BS+ ext - no edema, pulses 2+ b/l psych - a/o x 3 Results & Data Results & Data Vital Signs (Past 12 Hours) Vital Signs Temp Pulse Resp BP Pulse Ox O2 Del Method 08/24/24 19:45 36.7 C 75 18 113/53 L 94 Room Air 08/24/24 14:58 37.0 C 81 16 131/73 Room Air 08/24/24 14:25 18 94 Room Air 08/24/24 13:04 93 Room Air Laboratory Results Laboratory Results - last 24 hr 08/24/24 09:53 Sodium 133 L Potassium 3.6 Chloride 102 Carbon Dioxide 22 Anion Gap 9 BUN 14 Creatinine 0.54 L Est Cr Clr Drug Dosing 64.1 eGFR 97.76 BUN/Creatinine Ratio 25.9 H Glucose 104 H Calcium 9.1 PG Care Time/CCT Total # of Minutes Spent Total Time Spent with Patient: Total time spent is greater than 50% in coordination of care (as documented) at patient's floor/unit and/or counseling patient: Coding Level of Care Code 10300 SUB INP/OBS CARE 3/50MIN Diagnoses Pseudomonas pneumonia J15.1 Bronchiectasis J47.9 Leukocytosis D72.829 Hyponatremia E87.1
[2024-08-24] MEDS: diphenhydrAMINE 50 MG/ML VIAL IV STA (20:16)
[2024-08-25] MEDS: ACETYLCYSTEINE 20% INHAL SOLN 4ML ***DISPENSED BY RESP. INH SCH (07:08)
[2024-08-25 07:13] VITALS: O2SAT 95
[2024-08-25 08:02] VITALS: BP 117/69; PULSE 80; RESP 16; TEMP 97.2
--- NOTE | 2024-08-25 08:58 | Pulmonology Progress Note ---
Date of Service August 25, 2024 Assessment & Plan (1) Pneumonia: Laterality: right Lung location: unspecified part of lung P neumonia type: due to unspecified organism Qualified Code(s): J18.9 - Pneumonia, unspecified organism (2) Bronchiectasis: (3) Pseudomonas pneumonia: Plan Impression: 73-year-old female with bronchiectasis of unclear etiology and recent outpatient treatment for Pseudomonas with levofloxacin now with progressive respiratory symptoms and CT scan showing multifocal patchy airspace opacities consistent with pneumonia. She has been initiated on cefepime and appears to be doing well clinically. CTA chest 08/19/2024 personally reviewed: Bilateral apical pleural scarring Patchy groundglass opacities appreciated in the right upper lobe as well as right middle lobe Tree-in-bud opacities in the right lower lobe Significant mucous plugging especially of the RBI as well as subsegments in the left lower lobe No significant mediastinal lymphadenopathy -- Multilobar pneumonia Bronc culture from 08/05/2024 was positive for pansensitive Pseudomonas as well as Pasteurella oralis Patient was given Levaquin as an outpatient but she did not find any improvement and there is admitted to the hospital --Bronchiectasis with mucous plugging Mostly in the upper lobes with tree-in-bud opacities in the right lower lobe 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 Patient needs to be on hypertonic saline nebulized, Mucinex as well as flutter valve at home Plan: Recommend 14 days of total treatment since admission with fluoroquinolones on discharge. Repeat sputum culture as an outpatient. If she still has persistent Pseudomonas then consideration with tobramycin nebulized could be thought of by outpatient pulmonary. Continue with airway clearance technique with hypertonic saline nebulized twice a day, Mucinex and flutter valve. I do think patient will benefit from chest vest therapy as she did find benefit while she was in the hospital. Will defer it to be taken care of by her outpatient loan manager Nebulized N-acetylcysteine was started yesterday but unfortunately she developed rash from it. Avoided for the time being Consideration of lower dose N-acetylcysteine as an outpatient could be thought of. Will defer to primary loan manager. Case was discussed with RN at bedside No further recommendation from pulmonary perspective, will sign off Please call directly with any questions Please note the above document was generated using voice recognition software. It may contain grammatical, syntax or spelling errors.Any formal questions or concerns about the content, text or information contained within the body of this dictation should be directly addressed to the provider for clarification. Admission and Anticipated Discharge Date Admission Date: August 19, 2024 Subjective Patient seen and examined at bedside. No acute distress. Overnight patient developed rash and itchiness especially around the neck and lower back. She got new nebulizer treatment with Mucomyst last night as well as today in the morning. She got Benadryl and found benefit from it. When it comes to her breathing she says she is doing okay. Bringing up clear phlegm. Denies any hemoptysis. Review of Systems 2 Review of Systems: All systems reviewed & are unremarkable except as noted in Subjective Physical Exam 2 Physical Exam: Constitutional: No acute distress HEENT: EOMI, PERRLA Respiratory system: Decreased air entry bilaterally, no wheeze, no rhonchi, positive crackles bilateral lower lobes CVS: S1-S2 positive, no murmurs or gallops Abdomen: Soft, nontender, nondistended, positive bowel sounds x4 Extremities: +2 pulses bilaterally radialis/ dorsalis pedis, no cyanosis, no edema Neuro: Awake alert oriented x3 Psych: Normal mood and affect G/U: No Peterson Skin: no rashes, warm and dry Lymphatic: no cervical or axillary lymphadenopathy Results & Data Results & Data Vital Signs (Past 12 Hours) Vital Signs Temp Pulse Resp BP Pulse Ox O2 Del Method 08/25/24 07:59 36.2 C L 80 16 117/69 Room Air 08/25/24 07:11 72 18 95 Room Air Laboratory Results 08/21/24 05:32 08/24/24 09:53 PG Care Time/CCT Total # of Minutes Spent Total Time Spent with Patient: Total time spent is greater than 50% in coordination of care (as documented) at patient's floor/unit and/or counseling patient: Coding Level of Care Code 62215 SUB INP/OBS CARE 2/35MIN Diagnoses Pneumonia J18.9 Laterality: right Lung location: unspecified part of lung Pneumonia type: due to unspecified organism Bronchiectasis J47.9 Pseudomonas pneumonia J15.1
[2024-08-25] MEDS: CETIRIZINE HCL 10 MG TABLET PO PRN (09:58)
[2024-08-25] MEDS ORDERED: ACETYLCYSTEINE 20% INHAL SOLN 4ML ***DISPENSED BY RESP. INH SCH ×2 (11:15)
--- NOTE | 2024-08-25 12:59 | Discharge Summary ---
Discharge Summary Date of Service August 25, 2024 Principal Dx & Hospital Course #1 = Principal Diagnosis (1) Pseudomonas pneumonia: 73yo female with persistent MCKINNEY since January 2024 followed by [facility] pulmonary who was admitted with pseudomonas pneumonia. s/p bronchoscopy with Dr. Randall 08/05/2024 - bronch cx grew pansensitive Pseudomonas and pasturella canis. She completed an outpatient course of Levaquin a week ago with minimal improvement. CTA chest in ED with right sided opacities, mucus plugging, biapical pleural parenchymal scarring with mild traction bronchiectasis, no PE. She was admitted for pseudomonal pneumonia to have treatment with IV cefepime. Today is day #5 of Cefepime IV. Plan PO Cipro at d/c for 9 more days for total of 14 days of IV/PO therapy. (2) Bronchiectasis: thus far poor response to mucinex, saline nebs, bronchodilators, and flutter valve thus, added chest vibration vest BID also today added mucomyst BID will send home with all of the above cont abx as above in #1 (3) Leukocytosis: WBC 18 at admission now <10 2nd to #1 (4) Hyponatremia: chronic since 06/2024 Na level 133 today stable Plan Chronic stable diagnoses: Barrera's esophagus - Continue omeprazole Hyperlipidemia - continue Zetia Raynaud's - continue supportive care chronic back pain/shoulder pain - Tylenol as needed VTE ppx - enoxaparin 40mg daily today I completed a form to secure a chest vibration vest for her for home use again she has trialed mucinex, saline nebs, bronchodilators, flutter valve, etc to help with mucous clearance to no avail in the setting of her bronchiectasis thus, needs the chest vibration vest which she states IS helping care d/w Dr Hackett multiple times today unfortunately her pharmacy does not have the mucomyst in stock it has been ordered; hopefully will be available tomorrow no discharge but hopefully can send home tomorrow on 08/25 Admission HPI Per Admitting Provider Patient is a 73-year-old female with past medical history of hyperlipidemia, Raynaud's, Barrera's esophagus gas, vitamin D deficiency. She has been following with pulmonology since due to ongoing dyspnea. She was diagnosed with walking pneumonia, then developed COVID, now has a diagnosis of bronchiectasis. Denies diagnoses of asthma or COPD. She had a bronchoscopy with Dr. Randall 08/05/2024 in which he took samples of secretions that now have grown pansensitive Pseudomonas. She completed an outpatient course of Levaquin with minimal improvement. She has had worsening dyspnea on exertion that is debilitating to her daily tasks. She is being admitted for pseudomonal pneumonia to have treatment with IV cefepime, pulmonary consult placed to Dr. Randall. Patient seen at bedside. 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 She stated that she was told she has bronchiectasis and possible pneumonia and was given Levaquin that did not help her symptoms. She finished this on Friday. It did however change her mucus production from bright yellow to clear and thick. She stated over the summer she developed these pulmonology issues, she was started on albuterol inhaler, then a sodium chloride inhaler, and now on Friday she began an oral Ellipta inhaler. She feels as though these inhalers are not helping with her symptoms. She denies fevers, chills, dizziness, lightheadedness, headaches, chest pain, abdominal pain, nausea, vomiting, diarrhea. She was a former smoker however she quit 30 years ago. She does not drink alcohol. She denies past history of cancer, diabetes, previous VTE. She does not use oxygen at baseline. She did take her home medications this morning other than her cholesterol medication. She did note she takes an occasional additional omeprazole when she has acid reflux. She wishes to be DNR/DNI at this time. Patient stated she may have a rotator cuff tear of her shoulder, this is to be evaluated next week in the outpatient setting. She also stated she gets chronic back aches, has a backache on admission; will order Tylenol Discharge Exam gen - thin, NAD neck - no JVD mouth - MMM, no thrush heart - RRR, s1 s2, no murmur lungs - mild end-exp wheezes R>L, minimal rales bases, no increased work of breathing, airation wnl abd - soft NT ND BS+ ext - no edema, pulses 2+ b/l psych - a/o x 3 Discharge Plan Discharge Items Patient Disposition: Home - Self-Care Reason For Visit: PSEUDOMONAL PNEUMONIA Discharge Diagnosis: 1. bronchiectasis 2. pseudomonas pneumonia Activity: As commented below Activity Comment: light activities for 7-10 days then gradually resume normal activity Non-emergency contact: Primary Care Provider and Tub Washer Call non-emergency contact if: you have any medication questions, your symptoms worsen and you have a fever Follow-up/Referrals: Storm Castro MD [Primary Care Provider] - 08/27/24 11:00 am (Appointment will be with Bella Harvey PA-C) Dexter Randall MD [Physician] - 09/10/24 4:00 pm (Appointment will be with Truong Frausto PA-C) Diet: Regular Addtl Attending Provider Instructions: Ms Leong, Jonh were hospitalized due to having pneumonia in the lungs. The pneumonia was likely caused by pseudomonas bacteria which was isolated from your bronchoscopy in early July. There was a 2nd bacterium that also grew from the bronchoscopy cultures (pasteurella). Due to having a condition called "bronchiectasis" (see handouts) you are at higher risk of lung infections/pneumonia in comparison to others. You gradually improved with IV antibiotics, chest physiotherapy vest, saline nebulizer treatments, long-acting albuterol treatments, and other medicines. [facility] saw you in consult and provided hwang recommendations for your care. Unfortunately it appears you developed a reaction/allergy to Mucomyst nebulizer treatments. Recommendations - 1. antibiotics - * ciprofloxacin 500mg twice daily x 9 days, first dose upon arrival home * most common side effect - diarrhea * rare side effect - tendonitis or torn tendon, especially the achilles tendon (back of heel) 2. when you receive your chest vest (currently in process) please use twice daily as directed to help promote clearance of mucous 3. continue your saline nebulizer treatments twice daily every day; be sure to give yourself the long-acting albuterol nebulizer treatment before taking the saline neb 4. continue [id number]-[id number] Mucinex up to 1200mg twice daily for cough/congestion 5. for any itching may use [id number]-lankpsp cetirizine (zyrtec) 5mg twice daily as needed 6. take long-acting albuterol (Brovana) - 1 neb treatment twice daily every day 7. START Incruse Ellipta inhaler - 1 puff once daily on 08/26/24 8. HOLD your Anoro Ellipta inhaler for now unless Dr Randall asks you to resume it down the line 9. you may continue to use your albuterol inhaler 2 puffs every 4-6 hours as needed for cough/wheeze/shortness of breath Follow-up - see separate section Return to [facility] if - * you have fever over 100 degrees * you have worsening shortness of breath * you have severe diarrhea (3 or more liquid stools over a 24-hour period) * you have chest pains * any other concerns It was our pleasure to care for you! -Dr Ervin Pending Studies at Discharge: No Stand-Alone Forms: My [facility], Smoking Cessation Medications and DC Order Prescriptions: New arformoterol [Brovana] 15 mcg/2 mL solution for nebulization 2 ml inhalation BID Qty: 120 2RF ciprofloxacin HCl 500 mg tablet 500 mg PO BID 9 Days Qty: 18 0RF Incruse Ellipta 62.5 mcg/actuation blister with device 1 inh inhalation DAILY Qty: 30 2RF Continued omeprazole 40 mg capsule,delayed release(/EC) 40 mg PO QAM Qty: 90 3RF multivitamin [Daily Multi-Vitamin] tablet 1 tab PO DAILY cholecalciferol (vitamin D3) 2,000 unit capsule 2,000 units PO DAILY benzonatate 200 mg capsule 200 mg PO TID PRN (Reason: cough) Qty: 30 0RF albuterol sulfate 90 mcg/actuation HFA aerosol inhaler 2 puff inhalation QID PRN (Reason: shortness of breath or wheezing) Qty: 8.5 0RF sodium chloride 3 % solution for nebulization 4 ml inhalation Q8H PRN (Reason: secretions) Qty: 120 0RF guaifenesin [Mucinex] 1,200 mg tablet extended release 12hr 1,200 mg PO BID Qty: 60 0RF ezetimibe [Zetia] 10 mg tablet 10 mg PO DAILY Qty: 30 6RF Held Anoro Ellipta 62.5-25 mcg/actuation blister with device 1 inh inhalation DAILY Qty: 60 3RF Hold Instructions: hold until you see Dr Randall Discharge Orders: Discharge Order (Routine); Ordered 08/25/24 Ordered By: Christiano Olivares/Other Patient Handouts: Understanding Bronchiectasis, Treatment for Bronchiectasis Admission Data Admit Date/Time: 08/19/24 18:01 Attending Provider: Christiano Ervin Admit Provider: Christiano Chase Primary Care Provider: Storm Castro Other Providers: Dexter Randall; Christiano Chase Hospital Stay Data Consultations 08/19/24 18:03 Consult Pulmonology Routine 08/19/24 18:07 ED Decision to Admit Stat Diagnostic Imagining Performed 08/19/24 14:29 CT angio chest PE protocol Stat Pending Results Patient Have Any Pending Studies at Discharge: No Discharge Instructions Given to Patient (Per Discharging Provider) Ms Leong, Jonh were hospitalized due to having pneumonia in the lungs. The pneumonia was likely caused by pseudomonas bacteria which was isolated from your bronchoscopy in early July. There was a 2nd bacterium that also grew from the bronchoscopy cultures (pasteurella). Due to having a condition called "bronchiectasis" (see handouts) you are at higher risk of lung infections/pneumonia in comparison to others. You gradually improved with IV antibiotics, chest physiotherapy vest, saline nebulizer treatments, long-acting albuterol treatments, and other medicines. [facility] saw you in consult and provided hwang recommendations for your care. Unfortunately it appears you developed a reaction/allergy to Mucomyst nebulizer treatments. Recommendations - 1. antibiotics - * ciprofloxacin 500mg twice daily x 9 days, first dose upon arrival home * most common side effect - diarrhea * rare side effect - tendonitis or torn tendon, especially the achilles tendon (back of heel) 2. when you receive your chest vest (currently in process) please use twice daily as directed to help promote clearance of mucous 3. continue your saline nebulizer treatments twice daily every day; be sure to give yourself the long-acting albuterol nebulizer treatment before taking the saline neb 4. continue [id number]-evmhgto Mucinex up to 1200mg twice daily for coug h/congestion 5. for any itching may use fcgj-rub-jrdzuos cetirizine (zyrtec) 5mg twice daily as needed 6. take long-acting albuterol (Brovana) - 1 neb treatment twice daily every day 7. START Incruse Ellipta inhaler - 1 puff once daily on 08/26/24 8. HOLD your Anoro Ellipta inhaler for now unless Dr Randall asks you to resume it down the line 9. you may continue to use your albuterol inhaler 2 puffs every 4-6 hours as needed for cough/wheeze/shortness of breath Follow-up - see separate section Return to [facility] if - * you have fever over 100 degrees * you have worsening shortness of breath * you have severe diarrhea (3 or more liquid stools over a 24-hour period) * you have chest pains * any other concerns It was our pleasure to care for you! -Dr Ervin Coding Diagnoses Pseudomonas pneumonia J15.1 Bronchiectasis J47.9 Leukocytosis D72.829 Hyponatremia E87.1
== END 2024-08-25 13:45 | disposition home or self-care (01) | DRG 178 ==
LOC: ED 12:46 → SUATTDRO 18:01 → 2N 18:01 → 3E 08-21 19:05